=== PATIENT | female | born 1985 | race Caucasian/White ===

== ENCOUNTER 2017-12-19 18:00 | Inpatient (IN) | payer OTHER ==
[~2017-12-19] VITALS: Ht 165.1 cm; Wt 113.4 kg
[2017-12-19] MEDS ORDERED: MORPHINE SULFATE 2 MG/ML SYR IV STA (18:53)
[2017-12-19] MEDS ORDERED: ONDANSETRON HCL INJ 2 MG/ML VIAL IV STA (18:53)
[2017-12-19] MEDS ORDERED: SODIUM CHLORIDE 0.9% 1000ML 1,000 ML IV SCH (19:00)
[2017-12-19 19:17] LABS: BASOPHILS # (AUTO) 0.1 (0.0-0.1); BASOPHILS % 0.5 % (0.0-1.0); EOSINOPHILS # (AUTO) 0.2 (0.0-0.4); EOSINOPHILS % 1.5 % (0.0-6.0); HEMATOCRIT 42.5 % (34.2-44.1); HEMOGLOBIN 13.9 g/dL (12.0-16.0); LYMPHOCYTES # (AUTO) 2.3 (1.0-3.2); LYMPHOCYTES % 14.2 % (18.0-39.1); MEAN CORPUSCULAR HEMOGLOBIN 29.8 pg (28-32); MEAN CORPUSCULAR HGB CONC 32.7 g/dL (31-35); MONOCYTES # (AUTO) 0.6 (0.2-0.8); MONOCYTES % 3.7 % (4.4-11.3); NEUTROPHILS # (AUTO) 12.6 (2.1-6.9); NEUTROPHILS % 79.7 % (38.7-80.0); PLATELET COUNT 420 x10e3/uL (140-360); RED BLOOD COUNT 4.67 x10e6/uL (3.6-5.1); RED CELL DISTRIBUTION WIDTH 13.4 % (11.7-14.4)
[2017-12-19 19:30] LABS: INR 0.93; PARTIAL THROMBOPLASTIN TIME 25.1 seconds (23.8-35.5); PROTHROMBIN TIME 13.3 seconds (11.9-14.5)
--- NOTE | 2017-12-19 19:37 | Diagnostic Imaging Report ---
Examination: Single AP view of the chest. COMPARISON: None. INDICATION: Bronchitis DISCUSSION: Lines/tubes: None. Lungs: Pulmonary venous congestion. No consolidative pneumonia. Pleura: There is no pleural effusion or pneumothorax. Heart and mediastinum: The heart and the mediastinum are unremarkable. Bones and soft tissues: No acute bony abnormalities. IMPRESSION: No consolidative pneumonia Pulmonary venous congestion Signed by: Dr. Deven Lundberg M.D. on 12/19/2017 7:33 PM
[2017-12-19 19:39] LABS: ALANINE AMINOTRANSFERASE 32 IU/L (0-55); ALBUMIN 3.6 g/dL (3.5-5.0); ALBUMIN/GLOBULIN RATIO 0.9 (0.8-2.0); ALKALINE PHOSPHATASE 55 IU/L (40-150); ANION GAP 20.4 mmol/L (8-16); BLOOD UREA NITROGEN 13 mg/dL (7-26); BUN/CREATININE RATIO 15 (6-25); CALCIUM 9.5 mg/dL (8.4-10.2); CARBON DIOXIDE 17 mmol/L (22-29); CHLORIDE 103 mmol/L (98-107); CREATININE, SERUM 0.85 mg/dL (0.57-1.11); EST GLOMERULAR FILTRATION RATE > 60 ML/MIN (60-); GLUCOSE 128 mg/dL (74-118); MAGNESIUM 1.8 MG/DL (1.3-2.1); POTASSIUM 3.4 mmol/L (3.5-5.1); SODIUM 137 mmol/L (136-145)
[2017-12-19 20:26] LABS: CREATINE KINASE MB 1.7 ng/mL (0-5.0)
--- NOTE | 2017-12-19 20:54 | Diagnostic Imaging Report ---
EXAMINATION: CT scan of the chest with contrast. TECHNIQUE: Helical CT images of the chest were performed from the lung apices to the level of the adrenal glands after the intravenous administration of 100 cc of Isovue 300. Coronal and sagittal reformatted images were obtained.Dose modulation, iterative reconstruction, and/or weight based adjustment of the mA/kV was utilized to reduce the radiation dose to as low as reasonably achievable. COMPARISON: None. CLINICAL HISTORY:chest pain DISCUSSION: LINES/TUBES: None. LUNGS AND AIRWAYS: No pulmonary embolism. Multifocal groundglass opacities patchy in the upper lobes and confluence in the lower lobes. Interlobular septal thickening. PLEURA: Small pleural effusions. HEART AND MEDIASTINUM: The thyroid gland is normal. The heart and pericardium are within normal limits. LYMPH NODES: There is no mediastinal, hilar or axillary lymphadenopathy. ABDOMEN: Limited contrast-enhanced views of the upper abdomen show no abnormality within the visualized liver, spleen, pancreas, or kidneys. The adrenal glands are normal. BONES AND SOFT TISSUES: No acute bony abnormalities. IMPRESSION: No pulmonary embolism. Multifocal lower lobe predominant groundglass consolidations and interlobular septal thickening likely secondary to pulmonary edema. (Other less likely etiology include alveolar proteinosis, hemorrhage, or acute eosinophilic pneumonia). Small pleural effusions. Signed by: Dr. Deven Lundberg M.D. on 12/19/2017 8:51 PM
[2017-12-19] MEDS ORDERED: ACETAMINOPHEN 325 MG TAB PO PRN (21:45)
[2017-12-19] MEDS ORDERED: SODIUM CHLORIDE FLUSH 10 ML SYR INJ PRN (21:45)
[2017-12-19] MEDS ORDERED: ONDANSETRON HCL INJ 2 MG/ML VIAL IV PRN (21:45)
[2017-12-19] MEDS ORDERED: SODIUM CHLORIDE 0.9% 50ML 50 ML ONE (22:11)
[2017-12-19] MEDS ORDERED: IOPAMIDOL 370 MG/ML 200 ML INFUS..BTL INJ ONE (22:11)
[2017-12-19] MEDS: CEFTRIAXONE SOD 1 GM VIAL IV SCH (22:15)
[2017-12-19] MEDS: AZITHROMYCIN 500MG/NS 250 ML 250 ML IV SCH (22:15)
[2017-12-20] MEDS ORDERED: FEMYNOR PO (02:34)
[2017-12-20] MEDS ORDERED: SINGULAIR10 MG PO (02:34)
[2017-12-20 02:54] LABS: CREATINE KINASE MB 22.6 ng/mL (0-5.0)
[2017-12-20] MEDS ORDERED: METOPROLOL TARTRATE 25 MG TAB PO ONE (03:00)
[2017-12-20] MEDS ORDERED: ASPIRIN 81 MG CHEW TAB PO ONE (03:00)
[2017-12-20] MEDS ORDERED: MORPHINE SULFATE 2 MG/ML SYR IV STA (04:03)
[2017-12-20] MEDS ORDERED: ONDANSETRON HCL INJ 2 MG/ML VIAL IV STA (04:03)
[2017-12-20] MEDS ORDERED: ONDANSETRON HCL INJ 2 MG/ML VIAL ONE (04:07)
[2017-12-20] MEDS ORDERED: MORPHINE SULFATE 2 MG/ML SYR ONE (04:07)
[2017-12-20 05:21] LABS: BASOPHILS # (AUTO) 0.1 (0.0-0.1); BASOPHILS % 0.4 % (0.0-1.0); EOSINOPHILS # (AUTO) 0.3 (0.0-0.4); EOSINOPHILS % 2.7 % (0.0-6.0); HEMATOCRIT 36.5 % (34.2-44.1); HEMOGLOBIN 11.8 g/dL (12.0-16.0); LYMPHOCYTES # (AUTO) 3.5 (1.0-3.2); LYMPHOCYTES % 29.7 % (18.0-39.1); MEAN CORPUSCULAR HEMOGLOBIN 29.7 pg (28-32); MEAN CORPUSCULAR HGB CONC 32.3 g/dL (31-35); MEAN CORPUSCULAR VOLUME 91.9 fL (81-99); MONOCYTES # (AUTO) 0.5 (0.2-0.8); MONOCYTES % 4.6 % (4.4-11.3); NEUTROPHILS # (AUTO) 7.2 (2.1-6.9); NEUTROPHILS % 62.2 % (38.7-80.0); PLATELET COUNT 317 x10e3/uL (140-360); RED BLOOD COUNT 3.97 x10e6/uL (3.6-5.1); RED CELL DISTRIBUTION WIDTH 13.4 % (11.7-14.4)
[2017-12-20 05:32] LABS: ALANINE AMINOTRANSFERASE 33 IU/L (0-55); ALBUMIN/GLOBULIN RATIO 0.9 (0.8-2.0); ALKALINE PHOSPHATASE 44 IU/L (40-150); ANION GAP 14.8 mmol/L (8-16); BLOOD UREA NITROGEN 13 mg/dL (7-26); BUN/CREATININE RATIO 18 (6-25); CALCIUM 8.4 mg/dL (8.4-10.2); CARBON DIOXIDE 17 mmol/L (22-29); CHLORIDE 108 mmol/L (98-107); CREATININE, SERUM 0.71 mg/dL (0.57-1.11); EST GLOMERULAR FILTRATION RATE > 60 ML/MIN (60-); GLUCOSE 111 mg/dL (74-118); POTASSIUM 3.8 mmol/L (3.5-5.1); SODIUM 136 mmol/L (136-145)
[2017-12-20] MEDS ORDERED: MORPHINE SULFATE 2 MG/ML SYR IV PRN (07:00)
[2017-12-20] MEDS: METOPROLOL TARTRATE 25 MG TAB PO SCH ×2 (09:00→17:41)
[2017-12-20] MEDS ORDERED: ASPIRIN 81 MG ENTERIC COATED PO STA (10:23)
[2017-12-20 10:26] LABS: CREATINE KINASE MB 22.7 ng/mL (0-5.0)
[2017-12-20] MEDS ORDERED: HEPARIN SOD (PORCINE) 5,000 UNIT/ML VIAL IV ONE (10:30)
[2017-12-20 10:58] LABS: CHOL/HDL RATIO 2.5 (3.0-3.6)
--- NOTE | 2017-12-20 11:02 | Consultation ---
DATE OF CONSULTATION: December 20, 2017 CARDIOLOGY CONSULTATION REQUESTING PHYSICIAN: Dr. Madi Hernandez REASON FOR CONSULTATION: Chest pain. HISTORY OF PRESENT ILLNESS: This is a 32-year-old woman with history of pre-diabetes mellitus who presents with complaints of chest pain and shortness of breath. The patient indicates that she has had dyspnea on exertion, orthopnea and PND for the last 2 weeks. On Saturday, she saw her primary care doctor and was diagnosed with bronchitis. She was started on antibiotics without improvement in her symptoms. She saw her primary physician on Saturday again, and her antibiotics were changed. Yesterday, she noted her pulse ox reading was low, and she appeared pale, cold and clammy. She was, therefore, brought to the ER for further evaluation. Yesterday, the patient also developed burning, sharp chest pain yesterday that was worse with deep inspiration. She also complains of cough, subjective fever and chills. REVIEW OF SYSTEMS: Negative, except as per HPI. PAST MEDICAL HISTORY: Pre-diabetes mellitus. PAST SURGICAL HISTORY: section. ALLERGIES: NO KNOWN DRUG ALLERGIES. MEDICATIONS: Please see EMR. SOCIAL HISTORY: Denies tobacco, alcohol, or illicit drugs. FAMILY HISTORY: Denies family history of heart disease. PHYSICAL EXAMINATION VITAL SIGNS: Temperature 98.7 degrees, pulse 73, respiratory rate 17, blood pressure 116/83, oxygen saturation 98% on BiPAP. GENERAL: Obese woman in no acute distress, well developed, well nourished. HEENT: Normocephalic and atraumatic. Pupils are equal. No scleral icterus. NECK: Supple. No thyromegaly or cervical lymphadenopathy. No carotid bruit. LUNGS: Clear to auscultation bilaterally. No wheezes or crackles. CARDIOVASCULAR: Normal rate, regular rhythm. No murmur. Normal S1 and S2. ABDOMEN: Soft. Nontender. EXTREMITIES: No edema. NEURO: Nonfocal exam. LABS: WBC 11.64, hemoglobin 11.8, hematocrit 36.5, platelets 317. Sodium 136, potassium 3.8, chloride 108, CO2 17, BUN 13, creatinine 0.71. CK 271, CK-MB 22.6, troponin I 3.493. CT CHEST: No pulmonary embolism. Multifocal lower lobe predominant ground-glass consolidations and interlobular septal thickening likely secondary to pulmonary edema. Other less likely etiologies include alveolar proteinosis, hemorrhage, acute eosinophilic pneumonia, small pleural effusion. EKG: Sinus tachycardia, possible left atrial enlargement, left bundle-branch block. IMPRESSION 1. Pneumonia. 2. Acute hypoxic respiratory failure requiring noninvasive positive-pressure ventilation. 3. [id number] myocardial infarction. RECOMMENDATIONS: Start heparin drip and aspirin. Check lipid panel. Trend cardiac enzymes. Echocardiogram has been done. We will review the images. The patient will need ischemic evaluation. Antibiotics per primary service. Thank you for this consult. We will continue to follow. Job#: [id number]
[2017-12-20] MEDS: HEPARIN 25,000U/0.45% NS 250ML 1,000 UNIT in SODIUM CHLORIDE 0.9% 250ML 0 ML IV SCH ×2 (11:21→18:39)
[2017-12-20 13:13] LABS: BASOPHILS % 0.3 % (0.0-1.0); EOSINOPHILS # (AUTO) 0.5 (0.0-0.4); HEMATOCRIT 38.2 % (34.2-44.1); HEMOGLOBIN 12.5 g/dL (12.0-16.0); LYMPHOCYTES # (AUTO) 2.8 (1.0-3.2); LYMPHOCYTES % 30.4 % (18.0-39.1); MEAN CORPUSCULAR HGB CONC 32.7 g/dL (31-35); MEAN CORPUSCULAR VOLUME 91.6 fL (81-99); MONOCYTES # (AUTO) 0.3 (0.2-0.8); MONOCYTES % 3.4 % (4.4-11.3); NEUTROPHILS # (AUTO) 5.6 (2.1-6.9); NEUTROPHILS % 60.6 % (38.7-80.0); PLATELET COUNT 341 x10e3/uL (140-360); RED BLOOD COUNT 4.17 x10e6/uL (3.6-5.1); RED CELL DISTRIBUTION WIDTH 13.5 % (11.7-14.4)
[2017-12-20 13:25] LABS: INR 0.94; PROTHROMBIN TIME 13.4 seconds (11.9-14.5)
[2017-12-20 13:26] LABS: PARTIAL THROMBOPLASTIN TIME 34.4 seconds (23.8-35.5)
[2017-12-20] MEDS: FUROSEMIDE INJ 10 MG/ML 4 ML VIAL IV SCH ×2 (14:21→20:08)
[2017-12-20] MEDS ORDERED: MORPHINE SULFATE INJ 4 MG/ML INJ IV PRN (16:15)
[2017-12-20 17:02] VITALS: BP 137/98
[2017-12-20 17:07] VITALS: BP 137/98
[2017-12-20 20:00] VITALS: BP 123/88
[2017-12-20] MEDS: AZITHROMYCIN 500MG/NS 250 ML 250 ML IV SCH (20:08)
[2017-12-20] MEDS: CEFTRIAXONE SOD 1 GM VIAL IV SCH (20:08)
[2017-12-20 21:00] VITALS: BP 123/88
[2017-12-21 04:00] VITALS: BP 125/82
[2017-12-21 05:17] LABS: BASOPHILS # (AUTO) 0.1 (0.0-0.1); BASOPHILS % 0.6 % (0.0-1.0); EOSINOPHILS # (AUTO) 0.6 (0.0-0.4); EOSINOPHILS % 5.9 % (0.0-6.0); HEMATOCRIT 35.7 % (34.2-44.1); HEMOGLOBIN 11.4 g/dL (12.0-16.0); LYMPHOCYTES # (AUTO) 3.2 (1.0-3.2); LYMPHOCYTES % 29.4 % (18.0-39.1); MEAN CORPUSCULAR HEMOGLOBIN 29.2 pg (28-32); MEAN CORPUSCULAR HGB CONC 31.9 g/dL (31-35); MEAN CORPUSCULAR VOLUME 91.3 fL (81-99); MONOCYTES # (AUTO) 0.6 (0.2-0.8); MONOCYTES % 5.4 % (4.4-11.3); NEUTROPHILS # (AUTO) 6.3 (2.1-6.9); NEUTROPHILS % 58.4 % (38.7-80.0); PLATELET COUNT 293 x10e3/uL (140-360); RED BLOOD COUNT 3.91 x10e6/uL (3.6-5.1); RED CELL DISTRIBUTION WIDTH 13.3 % (11.7-14.4)
[2017-12-21 07:49] VITALS: BP 127/90
[2017-12-21] MEDS: ASPIRIN 81 MG ENTERIC COATED PO SCH (08:48)
[2017-12-21] MEDS: FUROSEMIDE INJ 10 MG/ML 4 ML VIAL IV SCH ×2 (08:48→20:49)
[2017-12-21] MEDS: METOPROLOL TARTRATE 25 MG TAB PO SCH ×2 (08:48→16:31)
[2017-12-21] MEDS: HEPARIN 25,000U/0.45% NS 250ML 1,000 UNIT in SODIUM CHLORIDE 0.9% 250ML 0 ML IV SCH (08:49)
[2017-12-21 10:37] VITALS: BP 127/90
[2017-12-21] MEDS ORDERED: NITROGLYCERIN 0.4 MG SUBL SL PRN (10:45)
[2017-12-21 11:55] VITALS: BP 122/79
--- NOTE | 2017-12-21 13:43 | Progress Note ---
DATE: December 21, 2017 CARDIOLOGY PROGRESS NOTE SUBJECTIVE: The patient had episode of sharp left-sided chest pain earlier today. This has now completely resolved. OBJECTIVE VITAL SIGNS: Temperature 97.8 degrees, pulse 95, respiratory rate 18, blood pressure 122/79, oxygen saturation 96% on 4 liters nasal cannula. GENERAL: Obese woman, in no acute distress, awake and alert. LUNGS: Clear to auscultation bilaterally. No wheezes or crackles. Decreased breast sounds in the bases. CARDIOVASCULAR: Normal rate, regular rhythm. No murmur. Normal S1 and S2. ABDOMEN: Soft, nontender. EXTREMITIES: No edema. CARDIAC MEDICATIONS 1. Heparin drip. 2. Lasix 40 mg IV q.12 hours. 3. Aspirin 81 mg p.o. daily. 4. Metoprolol tartrate 25 mg p.o. b.i.d. LABS: WBC 10.79, hemoglobin 11.4, hematocrit 35.7, and platelets 293. Troponin is 1.934. TELEMETRY: Normal sinus rhythm. IMPRESSION 1. [id number]-[id number] myocardial infarction. 2. Acute systolic heart failure, ejection fraction 45% to 50%. 3. Pneumonia. 4. Acute hypoxic respiratory failure, requiring noninvasive positive pressure ventilation. RECOMMENDATIONS: Continue current cardiac medications. Patient has had good diuresis on current Lasix regimen. We will continue plan for cardiac catheterization on Saturday. Thank you for this consult. We will continue to follow. Job#: [id number] ALIRIO
[2017-12-21 15:17] LABS: ANION GAP 16.7 mmol/L (8-16); BLOOD UREA NITROGEN 18 mg/dL (7-26); BUN/CREATININE RATIO 24 (6-25); CALCIUM 9.1 mg/dL (8.4-10.2); CARBON DIOXIDE 24 mmol/L (22-29); CHLORIDE 100 mmol/L (98-107); CREATININE, SERUM 0.74 mg/dL (0.57-1.11); EST GLOMERULAR FILTRATION RATE > 60 ML/MIN (60-); GLUCOSE 93 mg/dL (74-118); POTASSIUM 3.7 mmol/L (3.5-5.1); SODIUM 137 mmol/L (136-145)
[2017-12-21 16:30] VITALS: BP 128/89
[2017-12-21 20:00] VITALS: BP 140/103
[2017-12-21] MEDS: CEFTRIAXONE SOD 1 GM VIAL IV SCH (20:49)
[2017-12-21] MEDS: AZITHROMYCIN 500MG/NS 250 ML 250 ML IV SCH (20:49)
[2017-12-22 02:29] VITALS: BP 101/57
[2017-12-22 04:00] VITALS: BP 106/58
[2017-12-22 05:13] LABS: BASOPHILS # (AUTO) 0.1 (0.0-0.1); BASOPHILS % 0.5 % (0.0-1.0); EOSINOPHILS # (AUTO) 0.4 (0.0-0.4); EOSINOPHILS % 3.9 % (0.0-6.0); HEMATOCRIT 36.1 % (34.2-44.1); LYMPHOCYTES # (AUTO) 3.5 (1.0-3.2); LYMPHOCYTES % 32.5 % (18.0-39.1); MEAN CORPUSCULAR HGB CONC 33.2 g/dL (31-35); MEAN CORPUSCULAR VOLUME 90.3 fL (81-99); MONOCYTES # (AUTO) 0.5 (0.2-0.8); MONOCYTES % 4.9 % (4.4-11.3); NEUTROPHILS # (AUTO) 6.2 (2.1-6.9); NEUTROPHILS % 57.8 % (38.7-80.0); PLATELET COUNT 274 x10e3/uL (140-360)
[2017-12-22 05:28] LABS: ANION GAP 17.1 mmol/L (8-16); BLOOD UREA NITROGEN 15 mg/dL (7-26); BUN/CREATININE RATIO 21 (6-25); CARBON DIOXIDE 24 mmol/L (22-29); CHLORIDE 101 mmol/L (98-107); EST GLOMERULAR FILTRATION RATE > 60 ML/MIN (60-); GLUCOSE 102 mg/dL (74-118); POTASSIUM 3.1 mmol/L (3.5-5.1); SODIUM 139 mmol/L (136-145)
[2017-12-22 08:00] VITALS: BP 111/72
[2017-12-22] MEDS: FUROSEMIDE INJ 10 MG/ML 4 ML VIAL IV SCH ×3 (08:44→23:10)
[2017-12-22] MEDS: ASPIRIN 81 MG ENTERIC COATED PO SCH (08:44)
[2017-12-22] MEDS: METOPROLOL TARTRATE 25 MG TAB PO SCH ×2 (08:44→16:15)
[2017-12-22 12:00] VITALS: BP 117/82
[2017-12-22] MEDS ORDERED: POTASSIUM CHLORIDE 20 MEQ TAB CR PO ONE ×2 (12:00→13:30)
[2017-12-22] MEDS: HEPARIN 25,000U/0.45% NS 250ML 1,000 UNIT in SODIUM CHLORIDE 0.9% 250ML 0 ML IV SCH (13:30)
[2017-12-22 16:00] VITALS: BP 129/93
[2017-12-22 20:00] VITALS: BP 136/96
[2017-12-22] MEDS: AZITHROMYCIN 500MG/NS 250 ML 250 ML IV SCH (20:58)
[2017-12-22] MEDS: CEFTRIAXONE SOD 1 GM VIAL IV SCH (20:58)
--- NOTE | 2017-12-22 23:18 | Progress Note ---
DATE: December 22, 2017 CARDIOLOGY PROGRESS NOTE SUBJECTIVE: Patient reports she continues to have coughing when she lies down. In addition, she notes chest pressure and shortness of breath with ambulating to the bathroom. OBJECTIVE VITAL SIGNS: Temperature 98 degrees, pulse 86, respiratory rate 18, blood pressure 111/72, and oxygen saturation 99% on 4 L nasal cannula. GENERAL: Obese woman, in no acute distress, awake and alert. LUNGS: Clear to auscultation bilaterally. No wheezes or crackles other than decreased breath sounds in the bases. CARDIOVASCULAR: Normal rate, regular rhythm. No murmur. Normal S1 and S2. ABDOMEN: Soft, nontender. EXTREMITIES: No edema. CARDIAC MEDICATIONS 1. Furosemide 40 mg IV q.12 h. 2. Metoprolol tartrate 25 mg p.o. b.i.d. 3. Aspirin 81 mg p.o. daily. LABS: WBC 10.7, hemoglobin 12, hematocrit 36.1, and platelets 274,000. Sodium 139, potassium 3.1, chloride 101, CO2 of 24, BUN 15, and creatinine 70. TELEMETRY: Normal sinus rhythm. IMPRESSIONS 1. Non-ST elevation myocardial infarction. 2. Acute systolic heart failure, ejection fraction 45% to 50%. 3. Pneumonia. 4. Acute hypoxic respiratory failure, requiring noninvasive positive pressure ventilation. RECOMMENDATIONS: Increase diuretics. Repeat troponin. Keep patient on heparin drip. Plan for cardiac catheterization in the morning. Continue current cardiac medications. Otherwise, antibiotics per primary service. Thank you for this consult. We will continue to follow. Job#: [id number]
[2017-12-23] VITALS (9 sets, daily range): BP systolic 101–124; BP diastolic 57–81
[2017-12-23 05:05] LABS: BASOPHILS # (AUTO) 0.1 (0.0-0.1); BASOPHILS % 0.5 % (0.0-1.0); EOSINOPHILS # (AUTO) 0.2 (0.0-0.4); EOSINOPHILS % 2.1 % (0.0-6.0); HEMATOCRIT 36.1 % (34.2-44.1); HEMOGLOBIN 12.1 g/dL (12.0-16.0); LYMPHOCYTES # (AUTO) 3.5 (1.0-3.2); LYMPHOCYTES % 31.9 % (18.0-39.1); MEAN CORPUSCULAR HEMOGLOBIN 29.5 pg (28-32); MEAN CORPUSCULAR HGB CONC 33.5 g/dL (31-35); MONOCYTES # (AUTO) 0.5 (0.2-0.8); MONOCYTES % 4.7 % (4.4-11.3); NEUTROPHILS # (AUTO) 6.6 (2.1-6.9); NEUTROPHILS % 60.5 % (38.7-80.0); PLATELET COUNT 277 x10e3/uL (140-360)
[2017-12-23 05:29] LABS: ANION GAP 18.2 mmol/L (8-16); BLOOD UREA NITROGEN 13 mg/dL (7-26); BUN/CREATININE RATIO 17 (6-25); CALCIUM 9.3 mg/dL (8.4-10.2); CARBON DIOXIDE 24 mmol/L (22-29); CHLORIDE 100 mmol/L (98-107); CREATININE, SERUM 0.77 mg/dL (0.57-1.11); EST GLOMERULAR FILTRATION RATE > 60 ML/MIN (60-); GLUCOSE 100 mg/dL (74-118); POTASSIUM 3.2 mmol/L (3.5-5.1); SODIUM 139 mmol/L (136-145)
[2017-12-23] MEDS ORDERED: FENTANYL CITRATE/PF 100MCG/2 ML INJ ONE (07:22)
[2017-12-23] MEDS ORDERED: MIDAZOLAM HCL 2 MG/2 ML VIAL ONE ×2 (07:22→08:14)
[2017-12-23] MEDS ORDERED: LIDOCAINE HCL 1% LOCAL INJ 20 ML VIAL ONE (07:23)
[2017-12-23] MEDS ORDERED: IOPAMIDOL 370 MG/ML 200 ML INFUS..BTL INJ ONE (07:23)
[2017-12-23] MEDS ORDERED: SODIUM CHLORIDE 0.9% 1000ML 1,000 ML ONE (07:23)
[2017-12-23] MEDS ORDERED: HEPARIN SOD/SOD CHLORIDE 2,000 ML ONE (07:23)
[2017-12-23 07:33] LABS: INR 0.93; PROTHROMBIN TIME 13.3 seconds (11.9-14.5)
[2017-12-23] MEDS ORDERED: VERAPAMIL HCL 2.5 MG/ML 2 ML VIAL ONE (07:59)
[2017-12-23] MEDS ORDERED: HEPARIN SOD (PORCINE) 1000 UNIT/ML 30ML ONE (07:59)
[2017-12-23] MEDS ORDERED: NITROGLYCERIN/D5W 200 MCG/ML 250 ML ONE (07:59)
[2017-12-23] MEDS ORDERED: LISINOPRIL 10 MG TAB PO SCH (08:45)
[2017-12-23] MEDS: METOPROLOL TARTRATE 25 MG TAB PO SCH (09:00)
--- NOTE | 2017-12-23 09:20 | Operative Report ---
DATE OF PROCEDURE: December 23, 2017 INDICATIONS: Coronary artery disease and myocardial infarction. PROCEDURES PERFORMED 1. Left heart catheterization. 2. Selective coronary angiography. 3. Left ventriculography. 4. Deployment of right wrist transradial band. COMPLICATIONS: None. RECOMMENDATIONS: Medical therapy for nonischemic cardiomyopathy. Access obtained in the right radial artery. A 5-Georgian sheath was placed. Diagnostic coronary angiogram revealed no angiographic coronary artery disease in the left main, circumflex, left anterior descending, and right coronary arteries. LV ejection fraction is 30%. LV end-diastolic pressure of 21. No gradient across the aortic valve on pullback. Guide and sheath were removed. TR band applied. Patient was transferred to the room in stable condition. Job#: [id number] MICAH
--- NOTE | 2017-12-23 09:29 | Progress Note ---
DATE: December 23, 2017 CARDIOLOGY PROGRESS NOTE: Ms. Aleman feels better with less shortness of breath. PHYSICAL EXAMINATION VITALS: Afebrile, heart rate 88, blood pressure is 128/70. CARDIOVASCULAR: Regular rhythm. S3 gallop. LUNGS: Clear to auscultation bilaterally. ABDOMEN: Mildly distended. EXTREMITIES: Pedal pulses 2+. Coronary angiography demonstrated no evidence of coronary artery disease with an LV ejection fraction of 30%. ASSESSMENT: Acute systolic heart failure. PLAN: Aggressive medical therapy with Entresto, beta david, spironolactone. Patient can be discharged today with close followup in the office with Dr. Woods. I thank Dr. Hernandez for this consultation. Job#: [id number] MICAH
[2017-12-23] MEDS ORDERED: SODIUM CHLORIDE 0.9% 250ML 250 ML ONE (09:31)
[2017-12-23] MEDS: ASPIRIN 81 MG ENTERIC COATED PO SCH (09:50)
[2017-12-23] MEDS: FUROSEMIDE INJ 10 MG/ML 4 ML VIAL IV SCH (09:50)
[2017-12-23] MEDS ORDERED: SODIUM CHLORIDE 0.9% 1000ML 1,000 ML IV ONE (10:45)
--- NOTE | 2017-12-23 11:36 | Diagnostic Imaging Report ---
EXAMINATION: PA and lateral views of the chest. COMPARISON: CT chest with contrast 12/19/2017 CLINICAL HISTORY: Pneumonia DISCUSSION: The lungs are well-inflated. Patchy groundglass opacities throughout the lungs, though with a lower lung predominance persist and are seen to better advantage on comparison CT. No new consolidation or effusion. Stable cardiomediastinal contour. No acute osseous abnormality. IMPRESSION: Patchy multifocal opacities felt to represent pulmonary edema are seen to better advantage on comparison CT 12/19/2017. No new consolidations. Signed by: Dr. Sean Cates M.D. on 12/23/2017 11:32 AM
[2017-12-23] MEDS ORDERED: ALDACTONE25 MG ×2 (15:07→15:25)
[2017-12-23] MEDS ORDERED: ASPIRIN81 MG PO (15:07)
[2017-12-23] MEDS ORDERED: LOPRESSOR25 MG PO (15:07)
[2017-12-23] MEDS ORDERED: LIPITOR20 MG PO (15:07)
[2017-12-23] MEDS ORDERED: e (15:08)
--- OUTSIDE RECORDS SUMMARY | 2017-12-24 13:14 | XMS REPORT ---
Author [facility] Address Unknown Phone Unavailable Care Team Providers Care Hemotherapist Name Role Phone DANILO CHANG Unavailable Unavailable Problems This patient has no known problems. Allergies, Adverse Reactions, Alerts This patient has no known allergies or adverse reactions. Medications This patient has no known medications. Results Test Description Test Time Test Comments Text Results Atomic Results Result Comments CHEST 2 VIEWS 2017-12-23 11:30:00 [place] [address] Patient Name: JO MENESES MR #: [id number] : 1985 Age/Sex: 32/F Req #: [id number] Adm Physician: DANILO CHANG MD Ordered by: DANILO CHANG MD Report #: [id number] Location: [facility] Room/Bed: [place] [address] Procedure: [id number] DX/CHEST 2 VIEWS Exam Date: 12/23/17 Exam Time: 0630 REPORT STATUS: Signed EXAMINATION: PA and lateral views of the chest. COMPARISON: CT chest with contrast 12/19/2017 CLINICAL HISTORY: Pneumonia DISCUSSION: The lungs are well-inflated. Patchy groundglass opacities throughout the lungs, though with a lower lung predominance persist and are seen to better advantage on comparison CT. No new consolidation or effusion. Stable cardiomediastinal contour. No acute osseous abnormality. IMPRESSION: Patchy multifocal opacities felt to represent pulmonary edema are seen to better advantage on comparison CT 12/19/2017. No new consolidations. Signed by: Dr. Kelly Santo M.D. on 12/23/2017 11:32 AM Dictated By: KELLY SANTO MD 31 Transcribed By: LIANA on 12/23/171131 COPY TO: DANILO CHANG MD CT CHEST W 2017-12-19 20:33:00 [place] [address] Patient Name: JO MENESES MR #: [id number] : 1985 Age/Sex: 32/F Req #: [id number] Adm Physician: Ordered by: EDE LAWSON HARVESTER OPERATOR Report #: [id number] Location: ER Room/Bed: Procedure: [id number] CT/CT CHEST W Exam Date: Exam Time: REPORT STATUS: Signed EXAMINATION: CT scan of the chest with contrast. TECHNIQUE: Helical CT images of the chest were performed from the lung apices to the level of the adrenal glands after the intravenous administration of 100 cc of Isovue 300. Coronal and sagittal reformatted images were obtained.Dose modulation, iterative reconstruction, and/or weight based adjustment of the mA/kV was utilized to reduce the radiation dose to as low as reasonably achievable. COMPARISON: None. CLINICAL HISTORY:chest pain DISCUSSION: LINES/TUBES: None. LUNGS AND AIRWAYS: No pulmonary embolism. Multifocal groundglass opacities patchy in the upper lobes and confluence in the lower lobes. Interlobular septal thickening. PLEURA: Small pleural effusions. HEART AND MEDIASTINUM: The thyroid gland is normal. The heart and pericardium are within normal limits. LYMPH NODES: There is no mediastinal, hilar or axillary lymphadenopathy. ABDOMEN: Limited contrast- enhanced views of the upper abdomen show no abnormality within the visualized liver, spleen, pancreas, or kidneys. The adrenal glands are normal. BONES AND SOFT TISSUES: No acute bony abnormalities. IMPRESSION: No pulmonary embolism. Multifocal lower lobe predominant groundglass consolidations and interlobular septal thickening likely secondary to pulmonary edema. (Other less likely etiology include alveolar proteinosis, he morrhage, or acute eosinophilic pneumonia). Small pleural effusions. Signed by: Dr. Conner Marx M.D. on 12/19/2017 8:51 PM Dictated By: CONNER MARX MD 50 Transcribed By: LIANA on 12/19/172050 COPY TO: EDE LAWSON NP CHEST SINGLE (PORTABLE) 2017-12-19 19:32:00 [place] [address] Patient Name: JO MENESES MR #: [id number] : 1985 Age/Sex: 32/F Req #: [id number] Adm Physician: Ordered by: EDE LAWSON NP Report #: [id number] Location: ER Room/Bed: Procedure: [id number] DX/CHEST SINGLE (PORTABLE) Exam Date: 12/19/17 Exam Time: 1904 REPORT STATUS: Signed Examination: Single AP view of the chest. COMPARISON: None. INDICATION: Bronchitis DISCUSSION: Lines/tubes: None. Lungs: Pulmonary venous congestion. No consolidative pneumonia. Pleura: There is no pleural effusion or pneumothorax. Heart and mediastinum: The heart and the mediastinum are unremarkable. Bones and soft tissues: No acute bony abnormalities. IMPRESSION: No consolidative pneumonia Pulmonary venous congestion Signed by: Dr. Conner Marx M.D. on 12/19/2017 7:33 PM Dictated By: CONNER MARX MD 32 Transcribed By: LIANA on 12/19/171932 COPY TO: EDE LAWSON NP
--- NOTE | 2018-02-12 01:20 | Discharge Summary ---
CHIEF COMPLAINT: Chest pain, left bundle branch block, multifocal pneumonia. FINAL DIAGNOSES: Acute congestive heart failure due to cardiomyopathy. PROCEDURES: Cardiac cath. No intervention required. DISPOSITION: Home. A 32-year-old female no known past medical history, takes no medications, brought to the ER with a several-day history of progressively frequent cough associated with chest congestion, mild shortness of breath. Symptoms get worse with exertion. The day of admission patient developed left-sided chest pain radiating to the left arm. Was seen by her PCP a few days prior to admission. Diagnosed with bronchitis. Was given p.o. antibiotics and patient has had no improvement. In the emergency room, her chest was revealing inspiratory crackles. Further studies and monitoring was carried out and the patient admitted to facility for evaluation regarding left-sided chest pain, multifocal pneumonia on x-ray, respiratory distress. Initial cardiac enzymes, 1st set was showing some elevation, admission was made. Will be undergoing daley cultures. Request a cardiology follow. Will be placing on O2 supplement, nasal cannula. Will begin nebulizer treatments as well. Patient was admitted to [facility] on a cardiac diet. Vital signs are stable. She has been started on azithromycin 250 mg IV q.24. She was also placed on ceftriaxone 1 g IV q.24. Aspirin 81 mg daily. Morphine for pain control and for chest pain care, she was given nitroglycerin 0.4 mg sublingual q.5 minutes x3. Laboratory studies showing stable electrolytes. Kidney functions were stable. Glucose 111. CBC stable. Undergoing cardiology review. Patient was put on the catheterization board. Continued to be treated for atypical pneumonia. Further potassium was noted to have trended down to 3.1. Her other labs were continued to be stable. Nebulizer treatments were continuing. Tolerating her antibiotics well. Catheterization was conducted uneventfully. No coronary artery disease was noted. Patient was released home shortly after the catheterization in stable condition. EKGs are showing sinus tachycardia, possible left atrial enlargement, left bundle branch block. Further EKGs are showing normal sinus rhythm with left bundle branch block. Echocardiogram was showing ejection fraction between 45% and 50%. No evidence of pericardial effusion. Catheterization was carried out by Dr. Mcdonald and he noted there was no angiographic coronary artery disease, but the patient has nonischemic congestive heart failure. Will be treating medically. Returned to recovery room in good condition. Once stabilized from the procedure, the patient was able be discharged home in stable condition. With discharge, patient will continue on a cardiac diet. No equipment or supplies were necessary, drains or Lemus as needed. Activity level as directed by me, as well as by Dr. Mcdonald. She will be reporting back to Dr. Woods's office on December 27. Will be picking up samples. She will be returning to her PCP within 7-10 days. She will be taking 1. Aspirin 81 mg daily. 2. Lipitor 20 mg daily. 3. Femynor 0.25 per 35 one tablet daily. 4. Metoprolol tartrate 25 mg daily. 5. Singulair 10 mg at bedtime. 6. Aldactone 25 mg daily. She was instructed to stop taking her previous Aldactone prescription. Will be reporting back to emergency room if she has any further recurrence of symptoms. Dictated By: MASOUD Goodrich Job#: [id number] CQ
== END 2017-12-23 15:45 | disposition home or self-care (01) | DRG 280 ==
LOC: ER 18:00 → ERHOLD 21:33 → IMCU 12-20 16:42
PROC: 4A023N7 Measurement of Cardiac Sampling and Pressure, Left Heart, Percutaneous Approach (ICD-10-PCS; principal; 2017-12-23)
PROC: B2111ZZ Fluoroscopy of Multiple Coronary Arteries using Low Osmolar Contrast (ICD-10-PCS; 2017-12-23)
PROC: B2151ZZ Fluoroscopy of Left Heart using Low Osmolar Contrast (ICD-10-PCS; 2017-12-23)
DX: I21.4 Non-ST elevation (NSTEMI) myocardial infarction (principal); J96.01 Acute respiratory failure with hypoxia; I50.21 Acute systolic (congestive) heart failure; J69.0 Pneumonitis due to inhalation of food and vomit; I44.7 Left bundle-branch block, unspecified; I11.0 Hypertensive heart disease with heart failure; I25.5 Ischemic cardiomyopathy
CPT/HCPCS: 36415; 51700; 71045; 71046; 71260; 80048; 80053; 80061; 81025; 82550; 82553; 82948; 83605; 83735; 83880; 84484; 85025; 85610; 85730; 87040; 93005; 93306; 93458; 94660; 96361; 96365; 96366; 99284; J0456; J0696; J1644; J1940; J2001; J2250; J2270; J2405; J7030; J7050; Q9967

== ENCOUNTER → 2018-06-10 | Outpatient (CLI) | payer OTHER ==
[~2018-06-10] MED LIST: ALDACTONE25 MG; ASPIRIN81 MG PO; FEMYNOR PO; LIPITOR20 MG PO; LOPRESSOR25 MG PO; SINGULAIR10 MG PO; e
--- NOTE | 2018-06-10 10:32 | Diagnostic Imaging Report ---
EXAMINATION: PA and lateral views of the chest. COMPARISON: 12/23/2017 CLINICAL HISTORY: Shortness of breath, pacemaker DISCUSSION: Interval placement of a left subclavian approach implantable cardiac device. The body projects over the left midlung. Leads project over the right atrium, right ventricle, and coronary sinus. Lungs are well-inflated and without consolidation, pleural effusion, or pneumothorax. Normal heart size without overt pulmonary edema. No acute osseous abnormality. IMPRESSION: No acute cardiopulmonary abnormalities. Signed by: Dr. Sean Cates M.D. on 06/10/2018 10:29 AM
== END ==
LOC: RAD 09:40
PROVIDERS: ATTEND Internal Medicine
DX: R06.02 Shortness of breath (principal)
CPT/HCPCS: 71046

== ENCOUNTER 2018-06-19 23:14 | Observation (INO) | payer OTHER ==
[~2018-06-19] VITALS: Ht 165.1 cm; Wt 116.1 kg
--- OUTSIDE RECORDS SUMMARY | 2018-06-19 23:17 | XMS REPORT | Continuity of Care Document ---
Author Author [facility] Interface Address Unknown Phone Unavailable Problems Problem Status Onset Date Classification Date Reported Comments Source Chest pain Active Problem 12/23/2017 [facility] LBBB Active Problem 12/23/2017 [facility] Multifocal pneumonia Active Problem 12/23/2017 [facility] Medications Medication Details Route Status Patient Instructions Ordering Provider Order Date Source Spironolactone (Aldactone) 25 Mg Tablet, Active 12/23/2017 [facility] Aspirin 81 Mg Tab.chew Daily [facility] Atorvastatin Calcium (Lipitor) 20 Mg Tablet Daily Active [facility] E Active [facility] Femynor 0.25-[address] [facility] Metoprolol Tartrate (Lopressor) 25 Mg Tab Daily Active [facility] Montelukast Sodium (Singulair) 10 Mg Tablet Bedtime Active [facility] Spironolactone (Aldactone) 25 Mg Tablet Daily [facility] Allergies, Adverse Reactions, Alerts Substance Category Reaction Severity Reaction type Status Date Reported Comments Source Immunizations Immunization Date Given Site Status Last Updated Comments Source Results Order Name Results Value Reference Range Date Interpretation Comments Source Activated partial thromboplastin time (aPTT) in platelet poor plasma bycoagulation assay Activated partial thromboplastin time (aPTT) in platelet poor plasma bycoagulation assay 62.0 23.8 - 35.5 12/23/2017 [facility] INR in Platelet poor plasma by Coagulation assay INR in Platelet poor plasma by Coagulation assay 0.93 12/23/2017 [facility] Prothrombin time (PT) in platelet poor plasma by coagulation assay Prothrombin time (PT) in platelet poor plasma by coagulation assay 13.3 11.9 - 14.5 12/23/2017 [facility] Automated blood basophil count (count/volume) Automated blood basophil count (count/volume) 0.1 0.0 - 0.1 12/23/2017 [facility] Automated blood basophil count as percentage of total leukocytes Automated blood basophil count as percentage of total leukocytes 0.5 0.0 - 1.0 12/23/2017 [facility] Automated blood eosinophil count Automated blood eosinophil count 0.2 0.0 - 0.4 12/23/2017 [facility] Automated blood eosinophil count as percentage of total leukocytes Automated blood eosinophil count as percentage of total leukocytes 2.1 0.0 - 6.0 12/23/2017 [facility] Automated blood hematocrit (volume fraction) Automated blood hematocrit (volume fraction) 36.1 34.2 - 44.1 12/23/2017 [facility] Automated blood lymphocyte count as percentage ot total leukocytes Automated blood lymphocyte count as percentage ot total leukocytes 31.9 18.0 - 39.1 12/23/2017 [facility] Automated blood monocyte count as percentage of total leukocytes Automated blood monocyte count as percentage of total leukocytes 4.7 4.4 - 11.3 12/23/2017 [facility] Automated blood neutrophil count Automated blood neutrophil count 6.6 2.1 - 6.9 12/23/2017 [facility] Automated blood platelet count (count/volume) Automated blood platelet count (count/volume) 277 140 - 360 12/23/2017 [facility] Automated blood segmented neutrophil count as percentage of total leukocytes Automated blood segmented neutrophil count as percentage of total leukocytes 60.5 38.7 - 80.0 12/23/2017 [facility] Automated erythrocyte mean corpuscular hemoglobin (mass per erythrocyte) Automated erythrocyte mean corpuscular hemoglobin (mass per erythrocyte) 29.5 28 - 32 12/23/2017 [facility] Automated erythrocyte mean corpuscular hemoglobin concentration measurement (mass/volume) Automated erythrocyte mean corpuscular hemoglobin concentration measurement (mass/volume) 33.5 31 - 35 12/23/2017 [facility] Automated erythrocyte mean corpuscular volume Automated erythrocyte mean corpuscular volume 88.0 81 - 99 12/23/2017 [facility] Blood erythrocytes automated count (number/volume) Blood erythrocytes automated count (number/volume) 4.10 3.6 - 5.1 12/23/2017 [facility] Blood hemoglobin measurement (moles/volume) Blood hemoglobin measurement (moles/volume) 12.1 12.0 - 16.0 12/23/2017 [facility] Blood leukocytes automated count (number/volume) Blood leukocytes automated count (number/volume) 10.84 4.8 - 10.8 12/23/2017 [facility] Blood lymphocytes count (number/volume) Blood lymphocytes count (number/volume) 3.5 1.0 - 3.2 12/23/2017 [facility] Blood monocytes automated count (number/volume) Blood monocytes automated count (number/volume) 0.5 0.2 - 0.8 12/23/2017 [facility] Estimated glomerular filtration rate (GFR) determination Estimated glomerular filtration rate (GFR) determination null 60 12/23/2017 [facility] Glucose measurement Glucose measurement 100 74 - 118 12/23/2017 [facility] Serum or plasma anion gap Serum or plasma anion gap 18.2 8 - 16 12/23/2017 [facility] Serum or plasma calcium measurement (mass/volume) Serum or plasma calcium measurement (mass/volume) 9.3 8.4 - 10.2 12/23/2017 [facility] Serum or plasma carbon dioxide, total measurement (moles/volume) Serum or plasma carbon dioxide, total measurement (moles/volume) 24 22 - 29 12/23/2017 [facility] Serum or plasma chloride measurement (moles/volume) Serum or plasma chloride measurement (moles/volume) 100 98 - 107 12/23/2017 [facility] Serum or plasma creatinine measurement (mass/volume) Serum or plasma creatinine measurement (mass/volume) 0.77 0.57 - 1.11 12/23/2017 [facility] Serum or plasma potassium measurement (moles/volume) Serum or plasma potassium measurement (moles/volume) 3.2 3.5 - 5.1 12/23/2017 [facility] Serum or plasma sodium measurement (moles/volume) Serum or plasma sodium measurement (moles/volume) 139 136 - 145 12/23/2017 [facility] Serum or plasma urea nitrogen measurement (mass/volume) Serum or plasma urea nitrogen measurement (mass/volume) 13 7 - 26 12/23/2017 [facility] Serum or plasma urea nitrogen/creatinine mass ratio Serum or plasma urea nitrogen/creatinine mass ratio 17 6 - 25 12/23/2017 [facility] Troponin I measurement by highly sensitive enzyme immunoassay Troponin I measurement by highly sensitive enzyme immunoassay 1.024 0 - 0.300 12/23/2017 [facility] Red Cell Distribution Width 13.0 11.7 - 14.4 12/23/2017 [facility] IM GRANULOCYTES % 0.3 0.0 - 1.0 12/23/2017 [facility] Absolute Immature Granulocyte (auto 0.03 0 - 0.1 12/23/2017 [facility] Capillary blood glucose measurement by glucometer (mass/volume) Capillary blood glucose measurement by glucometer (mass/volume) 92 70 - 120 12/21/2017 [facility] Serum or plasma cholesterol in HDL measurement (mass/volume) Serum or plasma cholesterol in HDL measurement (mass/volume) 58 40 - 60 12/20/2017 [facility] Serum or plasma cholesterol in LDL measurement (mass/volume) Serum or plasma cholesterol in LDL measurement (mass/volume) 55 60 - 130 12/20/2017 [facility] Serum or plasma cholesterol measurement (mass/volume) Serum or plasma cholesterol measurement (mass/volume) 146 0 - 199 12/20/2017 [facility] Serum or plasma creatine kinase MB measurement (mass/volume) Serum or plasma creatine kinase MB measurement (mass/volume) 22.70 0 - 5.0 12/20/2017 [facility] Serum or plasma creatine kinase measurement (enzymatic activity/volume) Serum or plasma creatine kinase measurement (enzymatic activity/volume) 285 29 - 168 12/20/2017 [facility] Serum or plasma total cholesterol/cholesterol in HDL mass ratio Serum or plasma total cholesterol/cholesterol in HDL mass ratio 2.5 3.0 - 3.6 12/20/2017 [facility] Serum or plasma triglyceride measurement (mass/volume) Serum or plasma triglyceride measurement (mass/volume) 166 0 - 149 12/20/2017 [facility] Plasma globulin measurement (mass/volume) Plasma globulin measurement (mass/volume) 3.2 2.3 - 3.5 12/20/2017 [facility] Serum or plasma alanine aminotransferase measurement (enzymatic activity/volume) Serum or plasma alanine aminotransferase measurement (enzymatic activity/volume) 33 0 - 55 12/20/2017 [facility] Serum or plasma albumin measurement (mass/volume) Serum or plasma albumin measurement (mass/volume) 3.0 3.5 - 5.0 12/20/2017 [facility] Serum or plasma albumin/globulin mass ratio Serum or plasma albumin/globulin mass ratio 0.9 0.8 - 2.0 12/20/2017 [facility] Serum or plasma alkaline phosphatase measurement (enzymatic activity/volume) Serum or plasma alkaline phosphatase measurement (enzymatic activity/volume) 44 40 - 150 12/20/2017 [facility] Serum or plasma protein measurement (mass/volume) Serum or plasma protein measurement (mass/volume) 6.2 6.5 - 8.1 12/20/2017 [facility] Serum or plasma total bilirubin measurement (mass/volume) Serum or plasma total bilirubin measurement (mass/volume) 1.2 0.2 - 1.2 12/20/2017 [facility] Aspartate Amino Transf (AST/SGOT) 37 5 - 34 12/20/2017 [facility] Blood culture Blood culture NO GROWTH AFTER 72 HOURS 12/19/2017 [facility] Lactic Acid Level 13.3 4.5 - 19.8 12/19/2017 [facility] Serum or plasma magnesium measurement (mass/volume) Serum or plasma magnesium measurement (mass/volume) 1.8 1.3 - 2.1 12/19/2017 [facility] B-Type Natriuretic Peptide 118.2 0 - 100 12/19/2017 [facility] Urine human chorionic gonadotropin (hCG) detection Urine human chorionic gonadotropin (hCG) detection NEGATIVE NEGATIVE 12/19/2017 [facility] Vital Signs Vital Sign Value Date Comments Source Encounters Location Location Details Encounter Type Encounter Number Reason For Visit Attending Provider ADM Date DC Date Status Source Discharged Inpatient [id number] DANILO CHANG MD 12/19/2017 12/23/2017 [facility] Procedures Procedure Code Date Perfomer Comments Source X-ray of chest, two views [id number] 12/23/[address] [facility] Computed tomography of chest with contrast [id number] 12/19/[address] [facility]
[2018-06-19 23:52] LABS: BASOPHILS % 0.3 % (0.0-1.0); EOSINOPHILS # (AUTO) 0.5 (0.0-0.4); EOSINOPHILS % 3.5 % (0.0-6.0); HEMATOCRIT 37.8 % (34.2-44.1); HEMOGLOBIN 12.3 g/dL (12.0-16.0); LYMPHOCYTES # (AUTO) 3.6 (1.0-3.2); LYMPHOCYTES % 27.1 % (18.0-39.1); MEAN CORPUSCULAR HEMOGLOBIN 29.5 pg (28-32); MEAN CORPUSCULAR HGB CONC 32.5 g/dL (31-35); MEAN CORPUSCULAR VOLUME 90.6 fL (81-99); MONOCYTES # (AUTO) 0.6 (0.2-0.8); MONOCYTES % 4.5 % (4.4-11.3); NEUTROPHILS # (AUTO) 8.4 (2.1-6.9); NEUTROPHILS % 64.2 % (38.7-80.0); PLATELET COUNT 326 x10e3/uL (140-360); RED BLOOD COUNT 4.17 x10e6/uL (3.6-5.1); RED CELL DISTRIBUTION WIDTH 13.2 % (11.7-14.4)
[2018-06-19 23:54] LABS: CLARITY,URINE CLEAR (CLEAR); COLOR,URINE YELLOW (YELLOW); LEUKOCYTE ESTERASE ,URINE NEGATIVE (NEGATIVE); NITRITE,URINE NEGATIVE (NEGATIVE)
[2018-06-19 23:55] LABS: BILIRUBIN,URINE NEGATIVE (NEGATIVE); KETONES,URINE NEGATIVE (NEGATIVE); PROTEIN,URINE DIPSTICK NEGATIVE (NEGATIVE); URINE UROBILINOGEN 0.2 mg/dL (0.2 - 1)
[2018-06-19] MEDS ORDERED: ZYRTEC10 M3 PO (23:58)
[2018-06-19 23:59] LABS: INR 0.84
[2018-06-20] VITALS (8 sets, daily range): BP systolic 105–129; BP diastolic 54–67
[2018-06-20] LABS: PARTIAL THROMBOPLASTIN TIME 25.5 seconds (23.8-35.5)
[2018-06-20] MEDS ORDERED: METOPROLOL SUC100 MG PO (00:01)
[2018-06-20] MEDS ORDERED: BUMETANIDE2 MG PO (00:01)
[2018-06-20] MEDS ORDERED: POTASSIUM CHLO20 ME1 PO (00:01)
[2018-06-20] MEDS ORDERED: ENTRESTO PO (00:01)
--- NOTE | 2018-06-20 00:01 | Diagnostic Imaging Report ---
EXAMINATION: CHEST 2 VIEWS INDICATION: ^CHEST PAIN X3-4 HRS, PACEMAKER PLACED 04/2018 COMPARISON: Chest x-ray 06/10/2018. 12/23/2017. FINDINGS: PA and lateral views TUBES and LINES: Left-sided ICD with 3 leads. LUNGS: Lungs are well inflated. There are bibasilar atelectasis. There is mild prominence of the central pulmonary vasculature, consistent with pulmonary venous congestion. PLEURA: No pleural effusion or pneumothorax. HEART AND MEDIASTINUM: The cardiomediastinal silhouette is unremarkable. BONES AND SOFT TISSUES: No acute osseous lesion. Soft tissues are unremarkable. UPPER ABDOMEN: No free air under the diaphragm. IMPRESSION: Mild nonspecific central pulmonary venous congestion. No evidence of fluid overload. Signed by: Dr. Regan Torres M.D. on 06/19/2018 11:58 PM
[2018-06-20 00:05] LABS: BACTERIA,URINE MODERATE /HPF; EPITHELIAL CELLS,URINE MODERATE /LPF
[2018-06-20 00:09] LABS: ALANINE AMINOTRANSFERASE 10 IU/L (0-55); ALBUMIN 3.5 g/dL (3.5-5.0); ALBUMIN/GLOBULIN RATIO 0.9 (0.8-2.0); ALKALINE PHOSPHATASE 66 IU/L (40-150); BLOOD UREA NITROGEN 14 mg/dL (7-26); BUN/CREATININE RATIO 18 (6-25); CALCIUM 9.7 mg/dL (8.4-10.2); CARBON DIOXIDE 27 mmol/L (22-29); CHLORIDE 101 mmol/L (98-107); CREATINE KINASE 63 IU/L (29-168); CREATININE, SERUM 0.77 mg/dL (0.57-1.11); EST GLOMERULAR FILTRATION RATE > 60 ML/MIN (60-); GLUCOSE 143 mg/dL (74-118); SODIUM 138 mmol/L (136-145)
[2018-06-20] MEDS ORDERED: ONDANSETRON HCL INJ 2MG/ML 2ML 2 MG/ML VIAL IV PRN (02:15)
--- NOTE | 2018-06-20 03:07 | NUR ---
RECEIVED PT TO UNIT ROOM 113 VIA WHEELCHAIR ACCOMPANIED BY ER NURSE FAIZAN.PT AAO X 3.NO S/S OF DISTRESS NOTED.RESPIRATIONS EVEN/NON LABORED.PT DENIES CHEST PAIN CURRENTLY,BUT C/O LEG CRAMPS 10/18.WILL MEDICATE PER MAY.V/S CHECKED.ORIENTED PT TO ROOM,BATHROOM,CALL LIGHT/TV REMOTE AT THIS TIME.INSTRUCTED PT TO CALL FOR ASSISTANCE NEEDED BY USING CALL LIGHT.PT VERBALIZED UNDERSTANDING.BED IN LOW/LOCKED POSITION.CALL LIGHT WITHIN EASY REACH.
[2018-06-20] MEDS: HYDROCODONE/APAP 5MG-325MG TAB PO PRN (03:13)
--- NOTE | 2018-06-20 07:24 | NUR ---
REPORT GIVEN TO ONCOMING NURSE.WALKING ROUNDS MADE.PT RESTING IN BED WITH NO S/S OF DISTRESS.
[2018-06-20] MEDS: FAMOTIDINE 20 MG/2 ML VIAL IV SCH ×2 (09:00→12:30)
[2018-06-20] MEDS: ASPIRIN 81 MG CHEW TAB PO SCH (09:00)
[2018-06-20 10:07] LABS: CREATINE KINASE MB 0.6 ng/mL (0-5.0)
--- NOTE | 2018-06-20 10:25 | NUR ---
MD MENDEZ INTO SEE PT, DISCUSSED POC Addendum: 06/20/18 at 1233 by Colette Hwang RN AT 1230 MD ORDOÑEZ SEE PT, DISCUSSED POC, PT MADE AWARE OF CURRENT BILAT LE PAIN AND CHEST PAIN
--- NOTE | 2018-06-20 12:20 | NUR ---
PT C/O LAC IV "BURNING", REMOVED, NEW 20G TO R HAND BY RN, PT TOLERATED WELL,
--- NOTE | 2018-06-20 16:03 | NUR ---
PT RESTING, VOICES NO C/O AT THIS TIME, TELEPHONED MD MENDEZ TO MAKE AWARE OF LAB RESULTS, PHONE BUSY , WILL ATTEMPT AGAIN
--- NOTE | 2018-06-20 16:13 | NUR ---
TELEPHONED MD MENDEZ , SPOKE WITH MARIANGEL, AWAITING CALL BACK
[2018-06-20] MEDS ORDERED: ONDANSETRON HCL 4 MG ORAL DISINTEGRATING TAB PO PRN (16:30)
--- NOTE | 2018-06-20 16:57 | NUR ---
SPOKE WITH MD MENDEZ, MADE AWARE OF LAB VALUES AND THAT PT REPORTED THAT SHE HAS NOT VOIDED ALL DAY , ORDERS NOTED
[2018-06-20] MEDS ORDERED: NON-FORMULARY MEDICATION (Bumetanide 2 MG) PO SCH (17:00)
[2018-06-20 17:12] LABS: CREATINE KINASE MB 0.4 ng/mL (0-5.0)
[2018-06-20] MEDS ORDERED: BUMETANIDE 1 MG TAB PO SCH (17:15)
--- NOTE | 2018-06-20 17:32 | NUR ---
PER MD ORDER, BLADDER SCAN COMPLETED, 118-236ML NOTED, PT MEDICATED PER MD VANESSA ORDER, PT EDUCATED TO CALL IF NEED TO GO VOID, PT VERBALIZED UNDERSTANDING, CALL LIGHT WITHIN REACH
--- NOTE | 2018-06-20 19:16 | Diagnostic Imaging Report ---
EXAM: CT Chest WITH contrast (PE Protocol) INDICATION: Chest pain. Leg cramps. Pulmonary embolism. COMPARISON: 06/19/2018 TECHNIQUE: Chest was scanned utilizing a multidetector helical scanner from the lung apex through the level of the diaphragm after administration of IV contrast. Thin section reconstructions were obtained with special concentration on the pulmonary arteries. Coronal and sagittal reformations were obtained. Pulmonary embolism protocol was performed. IV CONTRAST: 100 mL of Isovue-370 COMPLICATIONS: None RADIATION DOSE: Total DLP: 594.78 mGy*cm Estimated effective dose: (DLP x 0.014 x size factor) mSv CTDIvol has been reviewed. It is below the limits set by the Radiation Protocol Committee (RPC). Dose modulation, iterative reconstruction, and/or weight based adjustment of the mA/kV was utilized to reduce the radiation dose to as low as reasonably achievable. FINDINGS: LINES/ TUBES: Left-sided ICD with 3 leads.. LUNGS AND AIRWAYS: No filling defect is identified within the pulmonary arteries to the segmental level. The lungs are unremarkable. Airways are normal. PLEURA: The pleural spaces are clear. HEART AND MEDIASTINUM: The thyroid gland is normal. No mediastinal, hilar or axillary lymphadenopathy. The heart is enlarged in size. There is no pericardial effusion. . Main pulmonary artery measures 2.5 cm in diameter and the ascending aorta measures 2.8 cm. UPPER ABDOMEN: Unremarkable BONES: The visualized bony thorax is within normal limits. SOFT TISSUES: Unremarkable. IMPRESSION: No pulmonary emboli. Cardiomegaly. Signed by: Dr. Wicho Rivas M.D. on 06/20/2018 7:13 PM
[2018-06-20] MEDS: FAMOTIDINE 20 MG TAB PO SCH (20:15)
--- NOTE | 2018-06-20 20:15 | NUR ---
PAGED DR. DELAROSA FOR CHEST CT RESULT. WAITING FOR CALL BACK.
[2018-06-20] MEDS ORDERED: IOPAMIDOL 370 MG/ML 200 ML INFUS..BTL INJ ONE (22:09)
[2018-06-20] MEDS ORDERED: SODIUM CHLORIDE 0.9% 50ML 50 ML ONE (22:09)
[2018-06-21] VITALS (8 sets, daily range): BP systolic 104–125; BP diastolic 51–75
--- NOTE | 2018-06-21 01:05 | Consultation ---
DATE OF CONSULTATION: 06/20/2018 Cardiology Consultation REASON FOR ADMISSION: Chest pain. HISTORY OF PRESENT ILLNESS: This is a 32-year-old woman with nonischemic cardiomyopathy suspected to be secondary to acute myocarditis, hypertension, and hyperlipidemia, who presents with complaints of chest pain. The patient reports she developed sharp chest pain at around 9:00 p.m., 10/10 in severity. The pain initially occurred intermittently, lasting minutes at a time, but then persisted. This was associated with arm and leg aches as well as nausea. The pain was worse with lying down, but she did not note any alleviating factors. She denies any fever, chills, shortness of breath, or diaphoresis. She continues to have orthopnea, but denies any dyspnea on exertion or PND. She reports she has gained 7 pounds since her last visit in the office and does report she has had recent travel. She had a 4-hour long trip twice this past weekend by car. REVIEW OF SYSTEMS: Negative as per HPI. PAST MEDICAL HISTORY: 1. Nonischemic cardiomyopathy. 2. Hypertension. 3. Hyperlipidemia. PAST SURGICAL HISTORY: section. ALLERGIES: NO KNOWN DRUG ALLERGIES. MEDICATIONS: Please see EMR. SOCIAL HISTORY: No tobacco, alcohol, or illicit drugs. FAMILY HISTORY: No family history of heart disease. PHYSICAL EXAMINATION: VITAL SIGNS: Temperature 97.8 degrees, pulse 80, respiratory rate 20, blood pressure 135/60, and oxygen saturation 97% room on room air. GENERAL: Awake, alert, in no acute distress. HEENT: Normocephalic, atraumatic. Pupils are equal. No scleral icterus. NECK: Supple. No thyroid or cervical lymphadenopathy. No carotid bruits. LUNGS: Clear to auscultation bilaterally. No wheezes or crackles. CARDIOVASCULAR: Normal rate. Regular rhythm. No murmur. Normal S1, S2. Soft and nontender. EXTREMITIES: No edema. NEUROLOGIC: Nonfocal exam. LABORATORY AND IMAGING DATA: Labs are normal except there is central pulmonary venous congestion. No evidence of fluid overload. EKG; electronic ventricular pacemaker. IMPRESSION: 1. Chest pain. 2. Nonischemic cardiomyopathy, status post biventricular ICD. 3. Hypertension. 4. Hyperlipidemia. RECOMMENDATIONS: 1. Trend cardiac enzymes to rule out myocardial infarction. Check D-dimer, given recent car ride, if elevated, we will obtain a CTA of the chest to rule out pulmonary embolism. We will also check a CRP to rule out pericarditis, given her worsening of the pain with laying down. 2. Resume home cardiac medications. MD BALDEMAR Ulloa/LILLIANL /[id number]
[2018-06-21 06:47] LABS: CHOL/HDL RATIO 2.1 (3.0-3.6)
[2018-06-21] MEDS: METOPROLOL SUCCINATE 50 MG TAB XL PO SCH (10:07)
[2018-06-21] MEDS: ASPIRIN 81 MG CHEW TAB PO SCH (10:07)
[2018-06-21] MEDS: FAMOTIDINE 20 MG TAB PO SCH ×2 (10:07→22:20)
[2018-06-21] MEDS: BUMETANIDE 1 MG TAB PO SCH ×3 (10:08→22:20)
[2018-06-21] MEDS: CELECOXIB 100 MG CAP PO SCH ×2 (10:08→16:40)
--- NOTE | 2018-06-21 12:38 | Progress Note ---
DATE: Cardiology Progress Note SUBJECTIVE: The patient complains of pain in her chest, especially around her recent ICD. Also endorses some shortness of breath that worsens upon lying down. OBJECTIVE: VITAL SIGNS: Temperature 97.1, pulse 84, respiratory rate 18, blood pressure 119/68, oxygen saturation 98% on room air. GENERAL: Alert and oriented x3. Resting comfortably in bed, at the bedside. NECK: Supple. No JVD noted. LUNGS: Clear to auscultation throughout. No wheezing. No crackles noted. CARDIOVASCULAR: Normal rate and rhythm. Normal S1, S2. No murmurs. ABDOMEN: Soft, nontender. LOWER EXTREMITIES: No edema. CARDIOVASCULAR MEDICATIONS: Bumex 2 mg p.o. t.i.d., metoprolol 100 p.o. daily, aspirin 81 p.o. daily, hydrocodone as needed for pain, and Celebrex 200 mg p.o. b.i.d. with meals. LABORATORY DATA: Triglycerides 168. Total cholesterol 129, LDL 34, HDL 62. IMAGING DATA: CT scan from yesterday negative for pulmonary emboli, cardiomegaly noted. Telemetry, ventricularly paced rhythm. IMPRESSION: 1. Atypical chest pain with recent ICD. 2. Nonischemic cardiomyopathy, status post biventricular ICD in April of 2018. 3. Hypertension. 4. Hyperlipidemia. RECOMMENDATIONS: Cardiac enzymes have ruled out myocardial infarction. D-dimer slightly elevated. However, CT negative for pulmonary emboli. Initiate anti-inflammatories at this point to assist with the above reported pain. Uptitrated Bumex due to shortness of breath. We will monitor for a day and discharge likely tomorrow. Continue to monitor this patient on telemetry. Dictated by Gina Cruz NP MD PAUL FarmerV/MONTY /[id number]
--- NOTE | 2018-06-21 14:36 | NUR ---
Nutrition Screen Note RD Recommendation for Physician: Continue diet as ordered Plan of Care: RD following, monitoring for adequacy and tolerance Nutrition reason for involvement: Nutrition Risk Trigger - MST Primary Diagnose(s): Chest pain Ht:65 in Wt:256lbs BMI:42.6 kg/m2 IBW:125lbs RD Assessment:(06/21/2018) Initial encounter with patient. Pt denies any N,V,D, nor has any difficulty chewing or swallowing. Pt denies any wt changes. Good po intake. Current Diet: Cardiac diet Malnutrition Evaluation (06/21/2018) The patient does not meet criteria for a specified degree of malnutrition at this time. Will re-evaluate at follow-up as appropriate. Diet Education Needs Assessment: Diet education not indicated. Diet Adequacy: Meeting calorie needs, Meeting protein needs, Meeting fluid needs Tolerance: Tolerating PO Nutrition Care Level: олег Hart RD, LD, [facility]
[2018-06-21] MEDS: HYDROCODONE/APAP 5MG-325MG TAB PO PRN (22:20)
--- NOTE | 2018-06-21 23:30 | NUR ---
PATIENT REPORTED CHEST PAIN WHERE THE PACEMAKER IS SURGICAL PLACED AND RADIATED ABOVE AND BELOW THE PLACEMENT OF THE PACEMAKER. INITIAL PAIN AT 6-7/10 AND AFTER TAKING NORCO, PAIN REDUCED TO 3/10. CONTINUE TO MONITOR PATIENT'S CHEST PAIN.
[2018-06-22] VITALS: BP 113/58
[2018-06-22 04:00] VITALS: BP 128/72
[2018-06-22 07:30] VITALS: BP 110/62
[2018-06-22 08:56] LABS: ALANINE AMINOTRANSFERASE 12 IU/L (0-55); ALBUMIN 3.2 g/dL (3.5-5.0); ALBUMIN/GLOBULIN RATIO 0.8 (0.8-2.0); ALKALINE PHOSPHATASE 59 IU/L (40-150); ANION GAP 10.6 mmol/L (8-16); BLOOD UREA NITROGEN 14 mg/dL (7-26); BUN/CREATININE RATIO 18 (6-25); CARBON DIOXIDE 30 mmol/L (22-29); CHLORIDE 98 mmol/L (98-107); CREATININE, SERUM 0.78 mg/dL (0.57-1.11); EST GLOMERULAR FILTRATION RATE > 60 ML/MIN (60-); GLUCOSE 108 mg/dL (74-118); POTASSIUM 3.6 mmol/L (3.5-5.1); SODIUM 135 mmol/L (136-145)
[2018-06-22 09:30] VITALS: BP 110/67
[2018-06-22] MEDS: FAMOTIDINE 20 MG TAB PO SCH (09:30)
[2018-06-22] MEDS: ASPIRIN 81 MG CHEW TAB PO SCH (09:30)
[2018-06-22] MEDS: METOPROLOL SUCCINATE 50 MG TAB XL PO SCH (09:30)
[2018-06-22] MEDS: CELECOXIB 100 MG CAP PO SCH (09:30)
[2018-06-22] MEDS: BUMETANIDE 1 MG TAB PO SCH (09:30)
[2018-06-22] MEDS ORDERED: CELEBREX100 MG PO (11:22)
[2018-06-22] MEDS ORDERED: ZOFRAN4 MG PO (11:22)
--- NOTE | 2018-06-22 11:27 | Progress Note ---
DATE: Cardiology Progress Note SUBJECTIVE: The patient reports some ongoing pain surrounding her ICD. Denies any shortness of breath at this time. Does report some nausea this morning. OBJECTIVE: VITAL SIGNS: Temperature 97.7, pulse 69, respiratory rate 18, blood pressure 110/62, oxygen saturation 98% on room air. GENERAL: Alert and oriented x3. Resting comfortably in bed. at the bedside. NECK: Supple. No JVD noted. LUNGS: Clear to auscultation throughout. No wheezing. No rhonchi or crackles. CARDIOVASCULAR: Normal rate and rhythm. Normal S1, S2. No murmurs noted. ABDOMEN: Soft, nontender. LOWER EXTREMITIES: No edema. CARDIOVASCULAR MEDICATIONS: Bumex 2 mg p.o. t.i.d., metoprolol 100 mg p.o. daily, aspirin 81 mg p.o. daily. LABORATORY DATA: Sodium 135, potassium 3.6, BUN 14, creatinine 0.78, Telemetry, atrially and ventricularly paced rhythm. IMPRESSION: 1. Atypical chest pain, status post recent ICD in April. 2. Ischemic cardiomyopathy, status post biventricular ICD. 3. Hypertension. 4. Hyperlipidemia. 5. Nausea. RECOMMENDATIONS: Okay to discharge from a cardiac standpoint. We will follow up with Dr. Woods towards the end of this week. Replete electrolytes. Initiate NSAIDs for pain control for the next 2 weeks. We will continue to monitor closely after discharge. Dictated by Gina Cruz NP MD MARLON Farmer/MONTY /[id number]
== END 2018-06-22 11:50 | disposition home or self-care (01) ==
LOC: ER 23:14 → ERHOLD 06-20 02:17 → MED/SURG 06-20 03:00
PROVIDERS: ADMIT Internal Medicine Interventional Cardiology; ATTEND Internal Medicine Interventional Cardiology
DX: R07.89 Other chest pain (principal); I10 Essential (primary) hypertension; I25.10 Atherosclerotic heart disease of native coronary artery without angina pectoris; E78.5 Hyperlipidemia, unspecified; Z95.810 Presence of automatic (implantable) cardiac defibrillator; Z82.49 Family history of ischemic heart disease and other diseases of the circulatory system; I42.8 Other cardiomyopathies; R11.0 Nausea
CPT/HCPCS: 36415 ×4; 71046; 71260; 80053 ×2; 80061; 81001; 82550 ×2; 82553 ×2; 83735; 83880 ×2; 84484 ×2; 84702; 85025; 85379; 85610; 85730; 86140; 93005; 93306; 99284; G0378 ×3; Q0162; Q9967

== ENCOUNTER 2020-02-03 19:45 | Emergency (ER) | payer OTHER ==
[~2020-02-03 19:45] MED LIST changes: +BUMETANIDE2 MG PO; +CELEBREX100 MG PO; +ENTRESTO PO; +METOPROLOL SUC100 MG PO; +POTASSIUM CHLO20 ME1 PO; +ZOFRAN4 MG PO; +ZYRTEC10 M3 PO
--- NOTE | 2020-02-03 19:50 | NUR ---
pt just signed out of [facility] when she was told she needed to be admitted to a covid pui bed for pneumonia. pt presents here becuase she did want to be admitted to a covid unit, i explained to her we would need to do labs, xray, vitals and covid test. at this point pt states she does not want to be worked up and withdrew her request for medical screening
--- NOTE | 2020-02-03 19:50 | NUR ---
patient called to triage, was told that she will have to go through process of being seen in the ED again, lab work and be evaluated and treated in the ER, pt refuses to have any work up done in the ED, pt denies shortness of breath, patient left ED and withdrew request for MSE, Dr. Moser spoke to patient
--- OUTSIDE RECORDS SUMMARY | 2020-02-03 19:58 | XMS REPORT | Continuity of Care Document ---
Author Author [facility] t Organization [facility] Address [facility] [place] [address] Phone Unavailable Care Team Providers Care Film Flat Inspector Name Role Phone SURY RAMIREZ DO PCP Gordon ALLEN, Chrisamaandriyi Attphys MARLI ANNE RD Attphys Unavailable PRINCESS WARREN M.D. Attphys Unavailable SOUTH, DEVICE Attphys Unavailable WELLERFLOR TROTTER Attphys Unavailable ISAURAALVAAN Attphys Unavailable Tc MENDEZ Attphys Unavailable CHANG, SOUHEIL Attphys Unavailable ISAURA WESLEY Admphys Unavailable CHANG, SOUHEIL Admphys Unavailable Payers Payer Name Policy Type Policy Number Effective Date Expiration Date Jony Campos Pos [id number] 2016 00:00:00 NATHAN perez [facility] Problems Condition Name Condition Details Condition Category Status Onset Date Resolution Date Last Treatment Date Treating Clinician Comments Source Snoring Snoring Problem Active [facility] Cough Cough Problem Active [facility] Pharyngitis, acute Pharyngitis, acute Problem Active [facility] Acute maxillary sinusitis Acute maxillary sinusitis Problem Active [facility] Diabetes mellitus Diabetes mellitus Problem Active [facility] Cardiomyopathy, nonischemic Cardiomyopathy, nonischemic Problem Active [facility] Other hyperlipidemia Other hyperlipidemia Problem Active [facility] Obesity, Class II, BMI 35-39.9 Obesity, Class II, BMI 35-39.9 Problem Active [facility] BMI 37.0-37.9, adult BMI 37.0-37.9, adult Problem Active [facility] Chest pain Chest pain Problem Active [facility] Left bundle branch block (LBBB) LBBB (left bundle branch block) Pro blem Active [facility] Multifocal pneumonia Multifocal pneumonia Problem Active [facility] Allergies, Adverse Reactions, Alerts Allergy Name Allergy Type Status Severity Reaction(s) Onset Date Inacti ve Date Treating Clinician Comments Source Eggs Allergy to Substance Active swelling 2018-06-21 00:00:00 [facility] EGGS DA Active U 2007-11-07 00:00:00 [facility] No Known Contrast Allergies DA Active U 2007-11-07 00:00: 00 [facility] No Known Drug Allergies DA Active U 2007-11-07 00:00:00 [facility] No Known Other Allergies DA Active U 2007-11-07 00:00:00 [facility] Family History Family Member Diagnosis Comments Start Date Stop Date Source Unknown Family Member Family history of asthma Other [facility] Unknown Family Member Family history of Allergy Other [facility] Mother Family history of diabetes mellitus [facility] Mother Family history of thyroid disease [facility] Mother Family history of obesity [facility] Social History Smoking Status Start Date Stop Date Source Never smoked tobacco (finding) [facility] Medications Ordered Medication Name Filled Medication Name Start Date Stop Da te Current Medication? Ordering Clinician Indication Dosage Frequency Signature (SIG) Comments Components Source Accu-Chek Guide In Vitro Strip Accu-Chek Guide In Vitro Stri p 2019-06-18 00:00:00 Yes PRINCESS WARREN M.D. Check BG 2x a day [facility] Accu-Chek FastClix Lancets Accu-Chek FastClix Lancets 2019-06-18 00:0 0:00 Yes PRINCESS WARREN M.D. Check BG 2x a day [facility] Accu-Chek Guide Me w/Device Kit Accu-Chek Guide Me w/Device Kit 2019-06-18 00:00:00 Yes PRINCESS WARREN M.D. For daily glucose mo nitoring [facility] Pantoprazole Sodium 40 MG Oral Tablet Delayed Release Pantoprazole Sodium 40 MG Oral Tablet Delayed Release 2019-06-18 00:00:00 Yes PRINCESS WARREN M.D. [facility] Femynor 0.25-35 MG-MCG Oral Tablet Femynor 0.25-35 MG-MCG Or al Tablet 2019-06-18 00:00:00 Yes PRINCESS WARREN M.D. [facility] Montelukast Sodium 10 MG Oral Tablet Montelukast Sodium 10 M G Oral Tablet 2015-01-10 00:00:00 Yes KENISHA DUNBAR M.D. TAKE 1 TABLET BY MOUTH EVERY DAY [facility] Bumetanide 2 MG Oral Tablet Bumetanide 2 MG Oral Tablet Yes PRINCESS WARREN M.D. 1 QD Per console attendant [facility] Jardiance 10 MG Oral Tablet Jardiance 10 MG Oral Tablet Yes PRINCESS WARREN M.D. 1 QD TAKE 1 TABLET DAILY [facility] Entresto 24-26 MG Oral Tablet Entresto 24-26 MG Oral Tablet Yes 1 Q0.5D TAKE 1 TABLET BY MOUTH TWICE A DAY [facility] ZyrTEC Allergy 10 MG Oral Tablet ZyrTEC Allergy 10 MG Oral Tablet Yes 1 TAKE 1 TABLET DAILY [facility]. [facility] Rosuvastatin Calcium 10 MG Oral Tablet Rosuvastatin Calcium 10 M G Oral Tablet Yes TAKE 1 TABLET EVERY NIGHT [facility] Aspirin 81 MG TABS Aspirin 81 MG TABS Yes 1 QD TA KE 1 TABLET DAILY. [facility] Citalopram Hydrobromide 20 MG Oral Tablet Citalopram H ydrobromide 20 MG Oral Tablet Yes 1 QD TAKE 1 TABLET DAILY [facility] Spironolactone 25 MG Oral Tablet Spironolactone 25 MG Oral Tablet Yes 1 QD TAKE 1 TABLET DAILY [facility] Magnesium 250 MG Oral Tablet Magnesium 250 MG Oral Tablet Y es 1 Q0.25D TAKE 1 TABLET 4 TIMES DAILY [facility] K-Tab 20 MEQ Oral Tablet Extended Release K-Tab 20 MEQ Oral Tablet Extended Release Yes PRINCESS WARREN M.D. 1 tablet 2x a day [facility] B-12 1000 MCG Oral Tablet B-12 1000 MCG Oral Tablet Yes PRINCESS WARREN M.D. TAKE ONE (1) TABLET(S) BY MOUTH ONCE A DAY. [facility] Metoprolol Tartrate 50 MG Oral Tablet Metoprolol Tartrate 50 MG Ora l Tablet Yes PRINCESS WARREN M.D. TAKE 1 TABLET EVERY 12 H OURS. Per console attendant [facility] Aspirin 81 Mg Tab.chew Aspirin 81 Mg Tab.chew Yes 81 Daily [facility] Atorvastatin Calcium (Lipitor) 20 Mg Tablet Atorvastat in Calcium (Lipitor) 20 Mg Tablet Yes 20 Daily [facility] Bumetanide 2 Mg Tablet Bumetanide 2 Mg Tablet Yes 2 Twice A Day [facility] Celecoxib (Celebrex*) 100 Mg Capsule Celecoxib (Celebrex*) 100 Mg C apsule Yes 100 Twice A Day [facility] Cetirizine Hcl (Zyrtec) 10 Mg Capsule Cetirizine Hcl (Zyrtec) 10 Mg Capsule Yes 10 Daily [facility] Entresto 24-26 Mg Tab Entresto 24-26 Mg Tab Yes 1 Twice A Day [facility] Femynor 0.25-35 Mg Femynor 0.25-35 Mg Yes 1 Da janette [facility] Metoprolol Succinate 100 Mg Tab.er.24h Metoprolol Succinate 100 Mg Tab.er.24h Yes 1 Daily [facility] Montelukast Sodium (Singulair) 10 Mg Tablet Montelukas t Sodium (Singulair) 10 Mg Tablet Yes 10 Bedtime [facility] Ondansetron Hcl (Zofran*) 4 Mg Tablet Ondansetron Hcl (Zofran*) 4 M g Tablet Yes 4 Every 8 Hours as needed for Nausea [facility] Potassium Chloride 20 Meq Tab.er.prt Potassium Chloride 20 Meq Tab. er.prt Yes 1 Daily [facility] E , E , 2018-06-19 00:00:00 No [facility] Metoprolol Tartrate (Lopressor) 25 Mg Tab, 25 Mg Oral Metoprolol Tartrate (Lopressor) 25 Mg Tab, 25 Mg Oral 2018-06-19 00:00:00 No 25 Daily [facility] Spironolactone (Aldactone) 25 Mg Tablet, Spironolacton e (Aldactone) 25 Mg Tablet, 2018-06-19 00:00:00 No Daily [facility] Spironolactone (Aldactone) 25 Mg Tablet, Spironolacton e (Aldactone) 25 Mg Tablet, 2017-12-23 00:00:00 No [facility] Vital Signs Vital Name Observation Time Observation Value Comments Source Systolic blood pressure 2019-10-20 10:55:00 100 mm[Hg] [facility] Diastolic blood pressure 2019-10-20 10:55:00 66 mm[Hg] [facility] Systolic blood pressure 2019-10-20 10:40:00 99 mm[Hg] Loca tion: LUE; Position: Sitting [facility] Diastolic blood pressure 2019-10-20 10:40:00 64 mm[Hg] Loc ation: LUE; Position: Sitting [facility] Body height 2019-10-20 10:40:00 67 [in_us] [facility] Weight 2019-10-20 10:40:00 237.25 [lb_av] [facility] Body mass index (BMI) [Ratio] 2019-10-20 10:40:00 37.16 kg/m2 [facility] Body temperature 2019-10-20 10:40:00 97.7 [degF] Method: Temporal [facility] Heart Rate 2019-10-20 10:40:00 80 /min [facility] Body height 2019-07-23 11:15:00 67 [in_us] [facility] Weight 2019-07-23 11:15:00 245.9 [lb_av] [facility] Body mass index (BMI) [Ratio] 2019-07-23 11:15:00 38.51 kg/m2 [facility] Systolic blood pressure 2019-06-18 14:10:00 114 mm[Hg] [facility] Diastolic blood pressure 2019-06-18 14:10:00 70 mm[Hg] [facility] Weight 2019-06-18 14:10:00 248.6 [lb_av] [facility] Body mass index (BMI) [Ratio] 2019-06-18 14:10:00 38.94 kg/m2 [facility] Heart Rate 2019-06-18 14:10:00 91 /min [facility] Systolic blood pressure 2019-06-18 13:28:00 105 mm[Hg] Loca tion: LUE; Position: Sitting [facility] Diastolic blood pressure 2019-06-18 13:28:00 70 mm[Hg] Loc ation: LUE; Position: Sitting [facility] Weight 2019-06-18 13:28:00 248.375 [lb_av] [facility] Body mass index (BMI) [Ratio] 2019-06-18 13:28:00 38.9 kg/m2 [facility] Heart Rate 2019-06-18 13:28:00 91 /min [facility] Body height 2019-06-18 13:28:00 67 [in_us] [facility] Procedures Procedure Date / Time Performed Performing Clinician Sour e [QL] MICROALBUMIN, RANDOM URINE (W/CREATININE) 2019-06-18 00:00: 00 [facility] [QL] T4, FREE 2019-06-18 00:00:00 [facility] [QL] TSH, 3RD GENERATION 2019-06-18 00:00:00 [facility] [QL] GAD65, IA-2, AND INSULIN AUTOANTIBODY 2019-06-18 00:00:00 [facility] [QL] C-PEPTIDE 2019-06-18 00:00:00 [facility] [QL] CBC (INCLUDES DIFF/PLT) 2019-06-18 00:00:00 [facility] [QL] HEPATIC FUNCTION PANEL 2019-06-18 00:00:00 [facility] Computed tomography of chest with contrast 2018-06-20 00:00:00 DANILO RIOJAS [facility] X-ray of chest, two views 2018-06-19 00:00:00 LORENZO HATFIELD I [facility] X-ray of chest, two views 2018-06-10 00:00:00 DANILO MENDEZ [facility] X-ray of chest, two views 2017-12-23 00:00:00 DANILO CHANG [facility] MEASURE OF CARDIAC SAMPL & PRESSURE, L HEART, PERC APPROACH 2017-12-23 00:00:00 ISAURA WESLEY [facility] FLUOROSCOPY OF MULT COR ART USING L OSM CONTRAST 2017-12-23 00:00:00 [facility] FLUOROSCOPY OF LEFT HEART USING LOW OSMOLAR CONTRAST 2017-12 00:00:00 [facility] Computed tomography of chest with contrast 2017-12-19 00:00: 00 EDE LAWSON [facility] History of Implantable Cardioverter-Defibrillator [facility] History of Section [facility] Plan of Care Planned Activity Planned Date Details Comments Source Future Appointment 2020-02-08 09:30:00 Cate SÁNCHEZ [facility] Encounters Start Date/Time End Date/Time Encounter Type Admission Type Attendi [facility] Care Department Encounter ID Source 2018-09-23 08:33:56 Outpatient SE CAR [id number] [facility] 2020-01-25 00:00:00 2020-01-25 00:00:00 Telephone Aisha Leyva [facility] [id number] 2019-12-17 10:00:00 2019-12-17 10:00:00 Appointment; MARLI ANNE RD WRIGHT, TISH, RD [facility] [id number] [facility] 2019-10-20 10:30:00 2019-10-20 10:30:00 Appointment; PRINCESS WARREN M .D. CHIU, ALICE, M.D. [facility] [id number] [facility] 2019-09-08 13:45:00 2019-09-08 13:45:00 Appointment; BROOKS, DEVICE SOUTH, DEVICE U[facility] [id number] [facility] 2019-07-23 10:00:00 2019-07-23 10:00:00 Appointment; MARLI ANNE RD WRIGHT, TISH, RD UTP [facility] [id number] [facility] 2019-06-18 13:30:00 2019-06-18 13:30:00 Appointment; PRINCESS WARREN M .D. CHIU, ALICE, M.D. [facility] [id number] [facility] 2019-05-13 11:15:00 2019-05-13 11:15:00 Appointment; FLOR WELLER JOSE UTP [facility] [id number] [facility] 2018-11-19 09:45:00 2018-11-19 09:45:00 Appointment; FLOR WELLER JOSE UTP [facility] [id number] [facility] 2018-08-26 11:02:00 2018-08-26 11:02:00 Outpatient [facility] CAR [id number] [facility] 2018-07-09 09:00:00 2018-07-09 09:00:00 Appointment; FLOR WELLER JOSE UTP [facility]TP [id number] [facility] 2018-06-20 02:17:00 2018-06-22 11:50:00 Discharged Inpatient (obs) 1 WESLEY DELAROSA [facility] [id number] [facility] 2018-06-11 09:45:00 2018-06-11 09:45:00 Appointment; FLOR WELLER JOSE UTP [facility]TP [id number] [facility] 2018-06-10 09:40:00 2018-06-10 09:40:00 Registered Clinic 3 DANILO MENDEZ [facility] [id number] [facility] 2018-04-30 08:45:00 2018-04-30 08:45:00 Appointment; SOUTH, DEVICE SOUTH, DEVICE UTP [facility]TP [id number] [facility] 2018-03-26 10:30:00 2018-03-26 10:30:00 Appointment; FLOR WELLER JOSE UTP [facility]TP [id number] [facility] 2017-12-19 21:33:00 2017-12-23 15:45:00 Discharged Inpatient 1 DANILO CHANG [facility] [id number] [facility] Results Test Description Test Time Test Comments Results Result Comments Source AMMONIA 2020-02-03 17:27:00 Test Item AMMONIA (test code = AMM) 22 umol/L 11-32 N B-TYPE NATRIURETIC [id number] 17:12:00* Test Item Value Reference Range Interpretation Comments B-TYPE NATRIURETIC PEPTIDE (test code = BNP) 89.94 pgram/mL 0-100 N - CT ABD PELVIS [id number] 15:55:00 [facility] : 1985 S ex: F Name: JO ANAYA [facility] : 1985 Ag e/S: 34 / F [address] [place] [address] Unit #: [id number] Loc: [place] [address] Phys: Cherry Corcoran MD Acct: [id number] Dis Date: Status: ADM IN PHONE #: [phone] Exam Date: 02/03/2020 1533 FAX #: [phone] Reason : nausea EXAMS: CPT CODE: [id number] CT ABD PELVIS W/CONT 75978 HISTORY: Shortness of breath and hypoxia . COMPARISON: Chest x-ray from same day and CT chest from same day . Location: [facility]. CTA chest with contrast: Automated exposure control. 3-D images. Unremarkable aorta without aneurysm or dissection. Well-opacified SVC and the visualized neck vasculature. No pulmonary embolism. Unremarkable thyroid glands. Esophageal wall is not th ickened. No pathologic adenopathy. Moderate cardiomegaly without pericardi al effusion. Subcutaneous tissues and the musculature are no rmal in appearance. Left ICD with the leads in the right atrium and right ventricle noted again. Dense consolidation in the apical seg ment of the right lower lobe. Lung glass infiltrates throughout the right lung suggestive of infectious process. No effusion or congestion. No bronc hiectasis, honeycombing or fibrosis or endobronchial lesions. IMPRESSION: Dense consolidation in the apical segment of t he right lower lobe posteromedially. Groundglass infiltrates from the ri ght lung consistent with infectious process. Left lung is clear. No effu ford or congestion. No pathologic adenopathy. No pulmo nary embolism. Unremarkable aorta. CT abdomen with c ontrast: Hepatic parenchyma enhanced homogeneously without mas s or lesions or architectural distortion. Gallbladder is without radiopa que stones. Portal vein and hepatic artery are patent. The liver is chapin uring 22.3 cm in length. The spleen is not enlarged an d enhanced homogeneously. The stomach distended incompletely however it is within normal limits. Pancreas is enhancing homogeneously. Unremarkable adrenals. PAGE 1 Signed Report (CONTINUED) Name: JO MENESES [facility] : 1985 Age/S: 34 / F [address] [facility] Unit #: [id number] Loc: [place], [place] [address] Phys: Cherry Corcoran MD Acct: [id number] Dis Date: Status: ADM IN PHONE #: [phone] Exam Date: 02/03/2020 1533 FAX #: [phone] Reason: nausea EXAMS: CPT CO DE: [id number] CT ABD PELVIS W/CONT 26158 <Continued> Kidneys are free from hydroureteronephrosis. Homogeneous enhancement. Bilateral excretion is noted. No pathologic adenopathy. Well-opacified abdominal and pelvic vasculature. No bowel obstruction or colitis or diverticulitis or enteritis. Constipation. CT PELVIS: Appendix is not visible with certainty but no inflammatory changes are noted. Pelvic bowel loops are unobstructed. Constipation. Unremarkable uterus and ovaries with follicular change. Unremarkable urinary bladder. No free fluid or free air or abscess. Subcutaneous tissues and the musculature are normal in appearance. No lytic or blastic lesions noted within the bony skeleton. IMPRESSION: No acute intra-abdominal or intrapelvic pathology. at 1555 Reported and signed by: Dakotah Begum M.D. CC: Wisam Garcia III, MD; Cherry Corcoran MD Technologist:Hetal Clark RT(R); DOMINICK Davis CTDI: DLP: Trnscb Date/Time: 02/03/2020 (5537) [email or web address].[email or web address] Orig Print D/T: S: 02/03/2020 (6484) PAGE 2 Signed Report - CTA CHEST FOR [id number] 15:55:00 [facility])Name: JO MENESES : 1985 S ex: F Name: JO ANAYA [facility] : 1985 Ag e/S: 34 / F [address] [place] [address] Unit #: [id number] Loc: [place] [address] Phys: Cherry Corcoran MD Acct: [id number] Dis Date: Status: ADM IN PHONE #: [phone] Exam Date: 02/03/2020 1533 FAX #: [phone] Reason : sob, hypoxia EXAMS: CPT CODE: [id number] [place] [address] HISTORY: Shortness of breath and hypoxia . COMPARISON: Chest x-ray from same day and CT chest from same day . Location: [facility]. CTA chest with contrast: Automated exposure control. 3-D images. Unremarkable aorta without aneurysm or dissection. Well-opacified SVC and the visualized neck vasculature. No pulmonary embolism. Unremarkable thyroid glands. Esophageal wall is not th ickened. No pathologic adenopathy. Moderate cardiomegaly without pericardi al effusion. Subcutaneous tissues and the musculature are no rmal in appearance. Left ICD with the leads in the right atrium and right ventricle noted again. Dense consolidation in the apical seg ment of the right lower lobe. Lung glass infiltrates throughout the right lung suggestive of infectious process. No effusion or congestion. No bronc hiectasis, honeycombing or fibrosis or endobronchial lesions. IMPRESSION: Dense consolidation in the apical segment of t he right lower lobe posteromedially. Groundglass infiltrates from the ri ght lung consistent with infectious process. Left lung is clear. No effu ford or congestion. No pathologic adenopathy. No pulmo nary embolism. Unremarkable aorta. CT abdomen with c ontrast: Hepatic parenchyma enhanced homogeneously without mas s or lesions or architectural distortion. Gallbladder is without radiopa que stones. Portal vein and hepatic artery are patent. The liver is chapin uring 22.3 cm in length. The spleen is not enlarged an d enhanced homogeneously. The stomach distended incompletely however it is within normal limits. Pancreas is enhancing homogeneously. Unremarkable adrenals. PAGE 1 Signed Report (CONTINUED) Name: JO MENESES [facility] : 1985 Age/S: 34 / F [address] [facility] Unit #: [id number] Loc: [place], [place] [address] Phys: Cherry Corcoran MD Acct: [id number] Dis Date: Status: ADM IN PHONE #: [phone] Exam Date: 02/03/2020 1533 FAX #: [phone] Reason: sob, hypoxia EXAMS: CPT [place] DE: [id number] [place] [address] <Continued> Kidneys are free from hydroureteronephrosis. Homogeneous enhancement. Bilateral excretion is noted. No pathologic adenopathy. Well-opacified abdominal and pelvic vasculature. No bowel obstruction or colitis or diverticulitis or enteritis. Constipation. CT PELVIS: Appendix is not visible with certainty but no inflammatory changes are noted. Pelvic bowel loops are unobstructed. Constipation. Unremarkable uterus and ovaries with follicular change. Unremarkable urinary bladder. No free fluid or free air or abscess. Subcutaneous tissues and the musculature are normal in appearance. No lytic or blastic lesions noted within the bony skeleton. IMPRESSION: No acute intra-abdominal or intrapelvic pathology. at 1555 Reported and signed by: Dakotah Begum M.D. CC: Wisam Garcia III, MD; Cherry Corcoran MD Technologist:Hetal Clark RT(R); DOMINICK Davis CTDI: DLP: Trnscb Date/Time: 02/03/2020 (0073) [email or web address] Orig Print D/T: S: 02/03/2020 (0907) PAGE 2 Signed Report - CT CHEST W/O [id number] 15:43:00 [facility])Name: JO MENESES : 1985 S ex: F Name: JO ANAYA [facility] : 1985 Ag e/S: 34 / F [address] [facility] Unit #: [id number] Loc: [place] [address] Phys: Betsy Snyder MSN Acct: [id number] Dis Date: Status: ADM IN PHONE #: [phone] Exam Date: 02/03/2020 1525 FAX #: [phone] Reason : PNA VS EDEMA EXAMS: CPT CODE: [id number] CT CHEST W/O CONTRAST 71128 HISTORY: Pneumonia versus edema. COMPARISON: Chest x-ray from February 03, 2020. Location: [facility] CT chest without contrast: Automated exposure control. Dense consolidation in the superior segment of the right lower lobe posteriorly. Vague groundglass opacity within the rest of the right lung as well. This is an infectious process. No congestion. No effusion is note d either. No bronchiectasis, honeycombing or fibrosis. Unremarkabl e thyroid glands. Normal caliber unopacified aorta and pulmonary arteries. Left ICD with the leads in the right atrium and right ventricle. Mild car diomegaly which is unusual for patient's age. No pericardial effusion. Visualized upper abdomen is within normal limits. The subcutaneous tissues and the musculature are normal in appearance. IMPRES FORD: Dense consolidation in the superior segment of the right lower lobe suggestive of infectious etiology. Groundglass infiltrates t hroughout the right lung. No effusion. No congestion. No pathologic jacob opathy. at 1543 Reported and signed by: Dakotah Begum M.D. CC: Betsy Snyder MSN; Ryan Reed DO; [facility] III,Wisam Howard MD Technologist:Darya Clark RT(R); DOMINICK Davis CTDI: DLP: Trnscb Date/Time: 02/03/20 (154) [email or web address] Orig Print D/T: S: 02/03/2020 (9615) PAGE 1 Signed Report URINALYSIS [id number] 14:44:00* Test Item Value Reference Range Interpretation Comments UA COLOR (test code = COLU) Light-Yellow YELLOW UA APPEARANCE (test code = APPU) CLEAR CLEAR UA GLUCOSE DIPSTICK (test code = DGLUU) >1000 (4+) mg/dL NEGATIVE UA BILIRUBIN DIPSTICK (test code = BILU) NEGATIVE mg/dL NEGATIVE UA KETONE DIPSTICK (test code = KETU) NEGATIVE mg/dL NEGATIVE UA SPECIFIC GRAVITY (test code = SGU) 1.021 1.001-1.035 UA BLOOD DIPSTICK (test code = ANNA MARIE) 0.03 mg/dL (Trace) mg/dL NEGATI VE A UA PH DIPSTICK (test code = DALE) 6.0 5.0-8.0 UA PROTEIN DIPSTICK (test code = PROU) 50 (1+) mg/dL NEGATIVE A UA UROBILINIOGEN DIPSTICK (test code = URO) Normal mg/dL NEGATIVE UA NITRITE DIPSTICK (test code = FEMI) NEGATIVE NEGATIVE UA LEUKOCYTE ESTERASE W REFLEX (test code = LEUUR) NEGATIVE Magalis/uL NEGATIVE UA WBC (test code = WBCU) 0-5 per HPF 0-5 UA RBC (test code = RBCU) 3-5 #/HPF 0-5 UA EPITHELIAL CELLS (test code = EPIU) FEW per HPF FEW UA BACTERIA (test code = BACU) FEW #/HPF NONE A UA HYALINE CAST (test code = HYALU) 11-20 #/LPF 0-5 A UA MUCUS (test code = MUCU) FEW #/LPF FEW Urine Source? Clean CatchDRUGS OF ABUSE SCREEN [id number] 14:44:00* Test Item Value Reference Range Interpretation Comments URN COCAINE (test code = COCAURN) NEGATIVE <300 ng/mL URN CANNABINOIDS (test code = CANNABURN) NEGATIVE <50 ng/mL URN AMPHETAMINE (test code = AMPHETURN) NEGATIVE <1000 ng/mL URN BARBITURATE (test code = BARBITURN) NEGATIVE <200 ng/mL URN BENZODIAZEPINE (test code = BENZOURN) NEGATIVE <200 ng/mL URN OPIATES (test code = OPIATURN) NEGATIVE <300 ng/mL URN PHENCYCLIDINE (PCP) (test code = PHENCURN) NEGATIVE <25 ng/ mL URN METHADONE (test code = METHAURN) NEGATIVE <300 ng/mL Urine Source? Clean CatchURINALYSIS [id number] 14:29:00* Test Item Value Reference Range Interpretation Comments UA COLOR (test code = COLU) Light-Yellow YELLOW UA APPEARANCE (test code = APPU) CLEAR CLEAR UA GLUCOSE DIPSTICK (test code = DGLUU) >1000 (4+) mg/dL NEGATIVE UA BILIRUBIN DIPSTICK (test code = BILU) NEGATIVE mg/dL NEGATIVE UA KETONE DIPSTICK (test code = KETU) NEGATIVE mg/dL NEGATIVE UA SPECIFIC GRAVITY (test code = SGU) 1.021 1.001-1.035 UA BLOOD DIPSTICK (test code = ANNA MARIE) 0.03 mg/dL (Trace) mg/dL NEGATI VE A UA PH DIPSTICK (test code = DALE) 6.0 5.0-8.0 UA PROTEIN DIPSTICK (test code = PROU) 50 (1+) mg/dL NEGATIVE A UA UROBILINIOGEN DIPSTICK (test code = URO) Normal mg/dL NEGATIVE UA NITRITE DIPSTICK (test code = FEMI) NEGATIVE NEGATIVE UA LEUKOCYTE ESTERASE W REFLEX (test code = LEUUR) NEGATIVE Magalis/uL NEGATIVE UA WBC (test code = WBCU) 0-5 per HPF 0-5 UA RBC (test code = RBCU) 3-5 #/HPF 0-5 UA EPITHELIAL CELLS (test code = EPIU) FEW per HPF FEW UA BACTERIA (test code = BACU) FEW #/HPF NONE A UA HYALINE CAST (test code = HYALU) 11-20 #/LPF 0-5 A UA MUCUS (test code = MUCU) FEW #/LPF FEW Urine Source? Clean CatchDRUGS OF ABUSE SCREEN [id number] 14:29:00* Test Item Value Reference Range Interpretation Comments URN COCAINE (test code = COCAURN) <300 ng/mL URN CANNABINOIDS (test code = CANNABURN) <50 ng/mL URN AMPHETAMINE (test code = AMPHETURN) <1000 ng/mL URN BARBITURATE (test code = BARBITURN) <200 ng/mL URN BENZODIAZEPINE (test code = BENZOURN) <200 ng/mL URN OPIATES (test code = OPIATURN) <300 ng/mL URN PHENCYCLIDINE (PCP) (test code = PHENCURN) <25 ng/ mL URN METHADONE (test code = METHAURN) <300 ng/mL Urine Source? Clean CatchBASIC METABOLIC [id number] 12:46:00* Test Item Value Reference Range Interpretation Comments SODIUM (test code = NA) 137 mmol/L 136-145 N POTASSIUM (test code = K) 4.0 mmol/L 3.5-5.1 N CHLORIDE (test code = CL) 104.0 mmol/L 98-107 N CARBON DIOXIDE (test code = CO2) 19.0 mmol/L 21-32 L ANION GAP (test code = GAP) 18.0 10-20 N GLUCOSE (test code = GLU) 195 mg/dL 74-106 H BLOOD UREA NITROGEN (test code = BUN) 21 mg/dL 7-18 H GLOMERULAR FILTRATION RATE (test code = GFR) 51 mL/min >=60 Estimated GFR by using Modified MDRD formula.Chronic kidney disease is defined as either kidney damageor GFR <60 mL/min/1.73 m2 for >3 months. CREATININE (test code = CREAT) 1.20 mg/dL 0.55-1.02 H Note change in reference range due to change in reagent. BUN/CREATININE RATIO (test code = BUN/CREA) 17.6 10-20 N CALCIUM (test code = CA) 9.2 mg/dL 8.5-10.1 N HEPATIC FUNCTION [id number] 12:46:00* Test Item Value Reference Range Interpretation Comments TOTAL PROTEIN (test code = PROT) 8.3 gram/dL 6.4-8.2 H ALBUMIN (test code = ALB) 3.5 g/dL 3.4-5.0 N GLOBULIN (test code = GLOB) 4.8 gram/dL 2.7-4.2 H ALBUMIN/GLOBULIN RATIO (test code = A/G) 0.7 0.75-1.50 L BILIRUBIN TOTAL (test code = BILT) 0.50 mg/dL 0.0-1.0 N BILIRUBIN DIRECT (test code = BILD) 0.16 mg/dL 0.0-0.20 N SGOT/AST (test code = AST) 16 IUnit/L 15-37 N SGPT/ALT (test code = ALT) 17 IUnit/L 12-78 N ALKALINE PHOSPHATASE TOTAL (test code = ALKP) 80 IUnit/L 45-117 N Note change in reference range due to change in reagent. [id number] 12:46:00* Test Item Value Reference Range Interpretation Comments LIPASE (test code = LIP) 54 U/L 73.0-393.0 L [id number] 12:46:00* Test Item Value Reference Range Interpretation Comments MAGNESIUM (test code = MAG) 2.9 mg/dL 1.8-2.4 H HCG SERUM [id number] 12:46:00* Test Item Value Reference Range Interpretation Comments HCG SERUM QUAL (test code = HCGQL) NEGATIVE NEGATIVE This HCGQL test is NOT applicable for MALE patients.Check with nurse about probable order error.If Tumor Marker Test needed, nurse should order test "HCGTU"(Test #550.66868) [id number] 12:46:00* Test Item Value Reference Range Interpretation Comments TROPONIN-I (test code = TROPI) <0.015 ng/mL 0-0.045 N [id number] 12:46:00* Test Item Value Reference Range Interpretation Comments ALCOHOL (test code = ALC) < 3 mg/dL 0.0-3.0 N -- INTERPRETIVE DATA NOTE: POSITIVE SCREENING RESULTS SHOULD BE CONSIDERED PRESUMPTIVE.WHEN COLLECTED FOR MEDICAL PURPOSES ONLY. SPECIMEN WILL NOTBE COLLECTED BY CHAIN OF CUSTODY.IF A CONFIRMATION OF POSITIVE RESULTS IS DESIRED, ACONFIRMATION TEST MUST BE REQUESTED BY THE PHYSICIAN AT ANADDITIONAL CHARGE TO THE PATIENT. PROTHROMBIN [id number] 12:39:00* Test Item Value Reference Range Interpretation Comments PROTHROMBIN TIME PATIENT (test code = PTP) 10.8 seconds 9.0-14.0 N INTERNATIONAL NORMAL RATIO (test code = INR) 0.9 0.8-1.2 N The therapeutic range for oral anticoagulant therapy formost indications is an international normalized ratio (INR)of between 2.0 and 3.0. The recommended therapeutic INRrange for various clinical situations is listed below: Clinical Situation INR range Pulmonary e mbolism treatment (2.0-3.0)Venous thrombosis treatmentVenous thrombosis prophylaxis (high risk surgery)Prevention of systemic embolism from: Acute myocardial infarction Valvular heart disease Atrial fibrillation Mechanical prosthetic heart valves (2.5-3.5) IS PATIENT ON ANTICOAGULANTS? NTHROMBOPLASTIN TIME [id number] 12:39:00* Test Item Value Reference Range Interpretation Comments THROMBOPLASTIN TIME PARTIAL (test code = PTT) 32.6 seconds 23.0-37. 0 N IS PATIENT ON ANTICOAGULANTS? NBASIC METABOLIC [id number] 12:36:00* Test Item Value Reference Range Interpretation Comments SODIUM (test code = NA) 137 mmol/L 136-145 N POTASSIUM (test code = K) 4.0 mmol/L 3.5-5.1 N CHLORIDE (test code = CL) 104.0 mmol/L 98-107 N CARBON DIOXIDE (test code = CO2) mmol/L 21-32 ANION GAP (test code = GAP) 10-20 GLUCOSE (test code = GLU) mg/dL 74-106 BLOOD UREA NITROGEN (test code = BUN) mg/dL 7-18 GLOMERULAR FILTRATION RATE (test code = GFR) mL/min >=60 CREATININE (test code = CREAT) mg/dL 0.55-1.02 BUN/CREATININE RATIO (test code = BUN/CREA) 10-20 CALCIUM (test code = CA) mg/dL 8.5-10.1 HEPATIC FUNCTION [id number] 12:36:00* Test Item Value Reference Range Interpretation Comments TOTAL PROTEIN (test code = PROT) gram/dL 6.4-8.2 ALBUMIN (test code = ALB) g/dL 3.4-5.0 GLOBULIN (test code = GLOB) gram/dL 2.7-4.2 ALBUMIN/GLOBULIN RATIO (test code = A/G) 0.75-1.50 BILIRUBIN TOTAL (test code = BILT) mg/dL 0.0-1.0 BILIRUBIN DIRECT (test code = BILD) mg/dL 0.0-0.20 SGOT/AST (test code = AST) IUnit/L 15-37 SGPT/ALT (test code = ALT) IUnit/L 12-78 ALKALINE PHOSPHATASE TOTAL (test code = ALKP) IUnit/L 45-117 [id number] 12:36:00* Test Item Value Reference Range Interpretation Comments LIPASE (test code = LIP) U/L 73.0-393.0 [id number] 12:36:00* Test Item Value Reference Range Interpretation Comments MAGNESIUM (test code = MAG) mg/dL 1.8-2.4 HCG SERUM [id number] 12:36:00* Test Item Value Reference Range Interpretation Comments HCG SERUM QUAL (test code = HCGQL) NEGATIVE NEGATIVE This HCGQL test is NOT applicable for MALE patients.Check with nurse about probable order error.If Tumor Marker Test needed, nurse should order test "HCGTU"(Test #550.26837) [id number] 12:36:00* Test Item Value Reference Range Interpretation Comments TROPONIN-I (test code = TROPI) ng/mL 0-0.045 [id number] 12:36:00* Test Item Value Reference Range Interpretation Comments ALCOHOL (test code = ALC) mg/dL 0-3 BASIC METABOLIC [id number] 12:34:00* Test Item Value Reference Range Interpretation Comments SODIUM (test code = NA) 137 mmol/L 136-145 N POTASSIUM (test code = K) 4.0 mmol/L 3.5-5.1 N CHLORIDE (test code = CL) 104.0 mmol/L 98-107 N CARBON DIOXIDE (test code = CO2) mmol/L 21-32 ANION GAP (test code = GAP) 10-20 GLUCOSE (test code = GLU) mg/dL 74-106 BLOOD UREA NITROGEN (test code = BUN) mg/dL 7-18 GLOMERULAR FILTRATION RATE (test code = GFR) mL/min >=60 CREATININE (test code = CREAT) mg/dL 0.55-1.02 BUN/CREATININE RATIO (test code = BUN/CREA) 10-20 CALCIUM (test code = CA) mg/dL 8.5-10.1 HEPATIC FUNCTION [id number] 12:34:00* Test Item Value Reference Range Interpretation Comments TOTAL PROTEIN (test code = PROT) gram/dL 6.4-8.2 ALBUMIN (test code = ALB) g/dL 3.4-5.0 GLOBULIN (test code = GLOB) gram/dL 2.7-4.2 ALBUMIN/GLOBULIN RATIO (test code = A/G) 0.75-1.50 BILIRUBIN TOTAL (test code = BILT) mg/dL 0.0-1.0 BILIRUBIN DIRECT (test code = BILD) mg/dL 0.0-0.20 SGOT/AST (test code = AST) IUnit/L 15-37 SGPT/ALT (test code = ALT) IUnit/L 12-78 ALKALINE PHOSPHATASE TOTAL (test code = ALKP) IUnit/L 45-117 [id number] 12:34:00* Test Item Value Reference Range Interpretation Comments LIPASE (test code = LIP) U/L 73.0-393.0 [id number] 12:34:00* Test Item Value Reference Range Interpretation Comments MAGNESIUM (test code = MAG) mg/dL 1.8-2.4 HCG SERUM [id number] 12:34:00* Test Item Value Reference Range Interpretation Comments HCG SERUM QUAL (test code = HCGQL) NEGATIVE [id number] 12:34:00* Test Item Value Reference Range Interpretation Comments TROPONIN-I (test code = TROPI) ng/mL 0-0.045 [id number] 12:34:00* Test Item Value Reference Range Interpretation Comments ALCOHOL (test code = ALC) mg/dL 0-3 - XR CHEST 1 [id number] 12:15:00 [facility])Name: JO MENESES : 1985 S ex: F FAX: Cherry Samson [phone] [place]: B St: PRE [facility] 1985 Age/S: 34/F [address] Unit #: [id number] Loc: [place] [address] Phys: Cherry Corcoran MD Acct: [id number] Dis Date: Stat us: PRE ER PHONE #: [phone] Exam Date: 02/03/2020 1204 FAX #: [phone] Reason: WEAKNE SS EXAMS: CPT CODE: [id number] XR CHEST 1 V 43014 REASON FOR EXAM: WEAKNESS E xam Order Date: 02/03/2020 11:13 AM Ordering M.Nikki.: Cherry vicente MD PROCEDURE: - XR CHEST 1 V COMPARISON: None FINDINGS: There is a hazy opacity in the right lower lobe. Remainder of the lungs are clear. There is no pleural effusion or pneumot horax. Pulmonary vascularity is within normal limits. Cardio mediastinal silhouette is normal in size for technique. The mediastinal co ntours are within normal limits. Left subclavian ICD/pacemaker is present with leads in the right atrium, right ventricle, and coronary sinus. Musculoskeletal structures are within normal limits. The visualized upper abdomen is within normal limits. IMPRES FORD: Opacity in the right lower lobe may represent any combination of a small layering effusion, atelectasis, and pneumonia. Remainder of the lungs are clear. Location: [facility] Electronical ly Signed by Davy Jacome MD on 02/03/2020 at 1215 Report ed and signed by: Davy Jacome MD CC: Cherry Corcoran MD Technologist: Dominick VICENTE(R) Trnscrd Date/Time/By: 02/03/2020 (9967) : By: [email or web address] Orig Print D/T: S: 02/03/2020 (6379) PAGE 1 Signed Report COVID 19 INHOUSE [id number] 12:10:00* Test Item Value Reference Range Interpretation Comments COVID 19 INHOUSE AG (test code = [id number]) NEGATIVE - CT HEAD/BRAIN W/O [id number] 12:09:00 [facility] ([facility]Name: JO MENESES : 1985 S ex: F Name: JO ANAYA [facility] : 1985 Ag e/S: 34 / F [address] [facility] Unit #: [id number] Loc: [place] [address] Phys: Cherry Corcoran MD Acct: [id number] Dis Date: Status: PRE ER PHONE #: [phone] Exam Date: 02/03/2020 1148 FAX #: [phone] Reason : ams EXAMS: CPT CODE: [id number] CT HEAD/BRAIN W/O CONT 74298 HISTORY: ams TECHNIQUE: N oncontrast 2.[address] of the head. Examination acquired within 24 k[address]sey rs of arrival. Automated exposure control for dose reduction. COMPARISON: None FINDINGS: No lacerations or contu sions of the scalp or facial soft tissues. Calvarium and skull base are i ntact. No acute hemorrhage. No intracranial mass, mass effect, or midline shift. No effacement of the sulci or cavazos-white matter interface. No cortical atrophy. No signs of white matter small-vessel disea se. No hydrocephalus.. No extra-axial fluid collection. Visualized paranasal sinuses are clear. Mastoid air cells and middle ear cavities are clear. Orbital contents are unremarkable. IMPRESSION: Negative CT head. Lo cation: HCA at 1209 Reported and signed by: Davy Jacome MD CC: Cherry Corcoran MD Technologist:Soraya sinha,RT(R),CT CTDI: DLP: Trnscb Date/Time: 02/03/2020 (120 9) [email or web address].[email or web address] Orig Print D/T: S: 02/03/2020 (1212) LUIS OROZCO 1 Signed Report CBC W/O [id number] 11:34:00* Test Item Value Reference Range Interpretation Comments WHITE BLOOD CELL (test code = WBC) 12.1 K/mm3 4.5-12.5 N RED BLOOD CELL (test code = RBC) 5.66 mill/mm3 3.7-5.2 H HEMOGLOBIN (test code = HGB) 16.1 gram/dL 11.5-15.5 H HEMATOCRIT (test code = HCT) 51.0 % 36.0-46.0 H MEAN CELL VOLUME (test code = MCV) 90.1 fL 80-98 N MEAN CELL HGB (test code = MCH) 28.4 picogram 27.0-33.0 N MEAN CELL HGB CONCETRATION (test code = MCHC) 31.6 gram/dL 33.0-36. 0 L RED CELL DISTRIBUTION WIDTH (test code = RDW) 13.2 % 11.6-16. 2 N PLATELET COUNT (test code = PLT) 388 K/mm3 150-450 N MEAN PLATELET VOLUME (test code = MPV) 9.4 fL 6.7-11.0 N Glucose (Point of Care In Office)2019-10-20 10:42:00* Test Item Value Reference Range Interpretation Comments Glucose POC Lifescan (test code = Glucose POC Lifescan) 95 [facility][O] Hemoglobin A1c (in office)2019-10-20 10:41:00 * Test Item Value Reference Range Interpretation Comments HEMOGLOBIN A1c (test code = 4548-4) 6.1 [facility][O] Lipid Panel (In Office)2019-10-20 10:41:00* Test Item Value Reference Range Interpretation Comments CHOLESTEROL, TOTAL (test code = 2093-3) 170 HDL CHOLESTEROL (test code = 2085-9) 57 TRIGLYCERIDES (test code = 2571-8) 257 LDL-CHOLESTEROL (test code = 20960-6) 62 NON HDL CHOLESTEROL (test code = NON HDL CHOLESTEROL) 114 T. Chol/HDL Ratio (test code = 9830-1) 3.0 GLUCOSE (test code = 1547-9) 113 [facility][QL] HEPATIC FUNCTION [id number] 11:08:00* Test Item Value Reference Range Interpretation Comments PROTEIN, TOTAL (test code = PROTEIN, TOTAL) 7.1 g/dl 6.1-8.1 N ALBUMIN (test code = ALBUMIN) 4.1 g/dl 3.6-5.1 N GLOBULIN (test code = GLOBULIN) 3.0 {G/DL CALC} 1.9-3.7 N ALBUMIN/GLOBULIN RATIO (test code = ALBUMIN/GLOBULIN RATIO) 1.4 {CALC} 1.0-2.5 N BILIRUBIN, DIRECT; Normal (test code = 40174-4) 0.2 mg/dl < OR = 0.2 N BILIRUBIN, INDIRECT; Normal (test code = 1971-1) 0.8 {MG/DL CHANDAN} 0 .2-1.2 N ALKALINE PHSPHATASE (test code = ALKALINE PHSPHATASE) 59 u/l 31-125 N AST; Normal (test code = 1916-6) 16 u/l 10-30 N ALT; Normal (test code = 1742-6) 20 u/l 6-29 N [facility][Q] BASIC METABOLIC PANEL, [id number] 11:08:00* Test Item Value Reference Range Interpretation Comments GLUCOSE; Above High Threshold (test code = 1547-9) 107 mg/dl 65- 99 Fasting reference interval For someone without known diabetes, a glucose valuebetween 100 and 125 mg/dL is consistent withprediabetes and should be confirmed with afollow-up test. UREA NITROGEN (BUN) (test code = UREA NITROGEN (BUN)) 14 mg/dl 7-25 N CREATININE (test code = CREATININE) 0.79 mg/dl 0.50-1.10 N eGFR NON- (test code = eGFR NON-LAKEISHA N TANZANIAN) 97 {ML/MIN/1.7} > OR = 60 N eGFR (test code = eGFR ) 11 2 {ML/MIN/1.7} > OR = 60 N BUN/CREATININE RATIO (test code = BUN/CREATININE RATIO) NOT APPLICA BLE 6-22 SODIUM (test code = SODIUM) 141 mmol/L 135-146 N POTASSIUM (test code = POTASSIUM) 4.0 mmol/L 3.4-4.8 N CHLORIDE (test code = CHLORIDE) 102 mmol/L 98-110 N CARBON DIOXIDE (test code = CARBON DIOXIDE) 25 mmol/L 20-32 N CALCIUM (test code = CALCIUM) 9.4 mg/dl 8.6-10.2 N [facility][QL] CBC (INCLUDES DIFF/PLT)2019-06-23 11:08:00* Test Item Value Reference Range Interpretation Comments WHITE BLOOD CELL COUNT (test code = WHITE BLOOD CELL COUNT) 8.1 {Thousand/u} 3.8-10.8 N RED BLOOD CELL COUNT (test code = RED BLOOD CELL COUNT) 4.91 {Million/uL} 3.80-5.10 N HEMAGLOBIN; Normal (test code = 71938-3) 13.8 g/dl 11.7-15.5 N HEMATOCRIT; Normal (test code = 4544-3) 42.8 % 35.0-45.0 N MCV; Normal (test code = 787-2) 87.2 fL 80.0-100.0 N MCHC; Normal (test code = 88401-4) 32.2 g/dl 32.0-36.0 N RDW; Normal (test code = 788-0) 12.3 % 11.0-15.0 N PLATELET COUNT; Normal (test code = 777-3) 393 {Thousand/u} 140-400 N MPV; Normal (test code = 11971-7) 10.1 fL 7.5-12.5 N ABSOLUTE NEUTROPHILS (test code = ABSOLUTE NEUTROPHILS) 4585 {cells/uL} 1245-6494 N ABSOLUTE LYMPHOCYTES (test code = ABSOLUTE LYMPHOCYTES) 2592 {cells/uL} 850-3900 N ABSOLUTE MONOCYTES (test code = ABSOLUTE MONOCYTES) 543 {cells/uL} 200-950 N ABSOLUTE EOSINOPHILS (test code = ABSOLUTE EOSINOPHILS) 340 {cells/ uL} 15-500 N ABSOLUTE BASOPHILS (test code = ABSOLUTE BASOPHILS) 41 {cells/uL} 0 -200 N NEUTROPHILS (test code = NEUTROPHILS) 56.6 % N LYMPHOCYTES (test code = LYMPHOCYTES) 32.0 % N MONOCYTES; Normal (test code = 48211-4) 6.7 % N EOSINOPHILS; Normal (test code = 33346-2) 4.2 % N BASOPHILS; Normal (test code = 74948-6) 0.5 % N [facility][QL] T4, [id number] 11:08:00* Test Item Value Reference Range Interpretation Comments T4, FREE (test code = T4, FREE) 1.2 ng/dl 0.8-1.8 N [facility][QL] TSH, 3RD [id number] 11:08:00* Test Item Value Reference Range Interpretation Comments TSH; Normal (test code = 77153-5) 1.43 {MIU/L} N Reference Range > or = 20 Years 0.40-4.50 Ranges First trimester 0.26-2.66 Second trimester 0.55-2.73 Third trimester 0.43-2.91 [facility][QL] [id number] 11:08:00* Test Item Value Reference Range Interpretation Comments C-PEPTIDE (test code = C-PEPTIDE) 4.67 ng/ml 0.80-3.85 [facility][QL] MICROALBUMIN, RANDOM URINE (W/CREATININE) 2019-06-23 11:08:00* Test Item Value Reference Range Interpretation Comments CREATININE, RANDOM URINE (test code = CREATININE, RANDOM URINE) 88 mg/dl 20-275 N MICROALBUMIN (test code = MICROALBUMIN) 0.5 mg/dl N Reference RangeNot established MICROALBUMIN/CREATININE RATIO, RANDOM UR INE (test code = MICROALBUMIN/CREATININE RATIO, RANDOM URINE) 6 {MCG/MG CRE} <30 N The ADA de fines abnormalities in albuminexcretion as follows: Category Result (mcg/mg creatinine) Normal <30Microalbuminuria 30-299 Clinical albuminuria > OR = 300 The ADA recommends that at least two of threespecimens collected within a 3-6 month period beabnormal before considering a patient to bewithin a diagnostic category. [facility][QL] GAD65, IA-2, AND INSULIN AUTOANTIBODY 2019-06-23 11:08:00* Test Item Value Reference Range Interpretation Comments GLUTAMIC ACID DECARBOXYLASE 65 AB (test code = GLUTAMIC ACID DECARBOXYLASE 65 AB) <5 <5 This test was pe rformed using the GAD65 CORI method whichis standardized against the International referencepreparation 97/550. IA-2 ANTIBODY (test code = IA-2 ANTIBODY) <5.4 <5.4 This test was performed using the IA-2 Antibody CORI methodwhich is standardized against the WHO Reference Ispptbw79/550. The reference range reported was establishedspecifically for this test method. INSULIN AUTOANTIBODY (test code = INSULIN AUTOANTIBODY) <0.4 <0.4 [facility][O] Hemoglobin A1c (in office)2019-06-18 13:32:00 * Test Item Value Reference Range Interpretation Comments HEMOGLOBIN A1c (test code = 4548-4) 5.9% [facility] ([facility])2019-06-18 13:31:00* Test Item Value Reference Range Interpretation Comments Glucose POC Lifescan (test code = Glucose POC Lifescan) 94 [facility][O] Lipid Panel (In Office)2019-06-18 13:29:00* Test Item Value Reference Range Interpretation Comments CHOLESTEROL, TOTAL (test code = 2093-3) 166 HDL CHOLESTEROL (test code = 2085-9) 53 TRIGLYCERIDES (test code = 2571-8) 243 LDL-CHOLESTEROL (test code = 46110-8) 64 NON HDL CHOLESTEROL (test code = NON HDL CHOLESTEROL) 112 T. Chol/HDL Ratio (test code = 9830-1) 3.1 GLUCOSE (test code = 1547-9) 91 [facility][L] [id number] 14:20:00* Test Item Value Reference Range Interpretation Comments BUN; Normal (test code = 3094-0) 16 N Creatinine; Normal (test code = 2160-0) 0.76 N eGFR If NonAfricn Am; Normal (test code = 37961-8) 102 N Sodium, Serum; Normal (test code = 2951-2) 137 N Potassium; Normal (test code = 2823-3) 5 N Chloride; Normal (test code = 2075-0) 104 N Carbon Dioxide, Total; Normal (test code = 2027-9) 25 N Calcium, Serum; Normal (test code = 37618-6) 9.6 N [facility]iciansSodium [id number] 09:07:00* Test Item Value Reference Range Interpretation Comments Sodium Level (test code = 2951-2) 135 136-145 L [facility] [id number] 09:07:00* Test Item Value Reference Range Interpretation Comments Potassium Level (test code = 2823-3) 3.6 3.5-5.1 [facility] [id number] 09:07:00* Test Item Value Reference Range Interpretation Comments Chloride Level (test code = 2075-0) 98 98-107 [facility] HospitalCarbon Dioxide [id number] 09:07:00* Test Item Value Reference Range Interpretation Comments Carbon Dioxide Level (test code = 2028-9) 30 22-29 H [facility] HospitalAnion [id number] 09:07:00* Test Item Value Reference Range Interpretation Comments Anion Gap (test code = 51571-0) 10.6 8-16 [facility] HospitalBlood Urea Bcqikttr5156-32-12 09:07:00* Test Item Value Reference Range Interpretation Comments Blood Urea Nitrogen (test code = 3094-0) 14 7-26 [facility] HospitalCreatinine2019-04-14 09:07:00* Test Item Value Reference Range Interpretation Comments Creatinine (test code = 2160-0) 0.78 0.57-1.11 [facility] HospitalBUN/Creatinine Ykqcx9419-84-83 09:07:00* Test Item Value Reference Range Interpretation Comments BUN/Creatinine Ratio (test code = 3097-3) 18 6-25 [facility] HospitalEstimat Glomerular Filtration Rate 2018-06-22 09:07:00* Test Item Value Reference Range Interpretation Comments Estimat Glomerular Filtration Rate (test code = 700599446) > 60 >60 Ranges were taken from the National Kidney Disease Education Program and the [facility] literature.Reference ranges:60 or greater: Pupyjg32-41 ( for 3 consecutive months): Chronic kidney disease 15 or less: Kidney failureMemorial [facility]ann [facility] HospitalGlucose Wzlam9737-21-54 09:07:00* Test Item Value Reference Range Interpretation Comments Glucose Level (test code = ZRA9067) 108 74-118 [facility] HospitalCalcium Syprn4964-08-12 09:07:00* Test Item Value Reference Range Interpretation Comments Calcium Level (test code = 07409-7) 9.0 8.4-10.2 [facility] HospitalTotal Cfgmpcseo4287-36-38 09:07:00* Test Item Value Reference Range Interpretation Comments Total Bilirubin (test code = 1975-2) 0.6 0.2-1.2 [facility] HospitalAspartate Amino Transf (AST/SGOT) 2018-06-22 09:07:00* Test Item Value Reference Range Interpretation Comments Aspartate Amino Transf (AST/SGOT) (test code = Aspartate Amino Transf (AST/SGOT)) 11 5-34 [facility] HospitalAlanine Aminotransferase (ALT/SGPT) 2018-06-22 09:07:00* Test Item Value Reference Range Interpretation Comments Alanine Aminotransferase (ALT/SGPT) (test code = 1742-6) 12 0-55 [facility] HospitalTotal Vcnzqws9367-21-22 09:07:00* Test Item Value Reference Range Interpretation Comments Total Protein (test code = 2885-2) 7.0 6.5-8.1 [facility] HospitalAlbumin2019-04-14 09:07:00* Test Item Value Reference Range Interpretation Comments Albumin (test code = 1751-7) 3.2 3.5-5.0 L [facility] HospitalGlobulin2019-04-14 09:07:00* Test Item Value Reference Range Interpretation Comments Globulin (test code = 58204-1) 3.8 2.3-3.5 H [facility] HospitalAlbumin/Globulin Tzbug5166-72-40 09:07:00 * Test Item Value Reference Range Interpretation Comments Albumin/Globulin Ratio (test code = 1759-0) 0.8 0.8-2.0 [facility] HospitalAlkaline Yjmiegcbxhx4063-81-92 09:07:00* Test Item Value Reference Range Interpretation Comments Alkaline Phosphatase (test code = 6768-6) 59 40-150 [facility] HospitalC-Reactive Ibnwwes0272-71-00 11:18:00* Test Item Value Reference Range Interpretation Comments C-Reactive Protein (test code = 1988-5) 9.3 0.0-4.9 H Performed at: HD - [facility] [address] [id number] Director: Dima Roberson MD, Phone: [phone] Hermann Northeast HospitalB-Type Natriuretic Kowehyg2527-83-57 07:13:00* Test Item Value Reference Range Interpretation Comments B-Type Natriuretic Peptide (test code = 00226-3) 37.9 0-100 [facility] HospitalTriglycerides Fxhyn5270-83-24 06:54:00* Test Item Value Reference Range Interpretation Comments Triglycerides Level (test code = 2571-8) 167 0-149 H [facility] HospitalCholesterol Qopqj2003-70-13 06:54:00* Test Item Value Reference Range Interpretation Comments Cholesterol Level (test code = 2093-3) 129 0-199 Less than 200 mg/dL Low Ebws164 - 239 mg/dL Borderline Zjcx195 m g/dl and greater High Risk [facility] HospitalLDL Bxsdtfcodsq4574-82-49 06:54:00* Test Item Value Reference Range Interpretation Comments LDL Cholesterol (test code = 2089-1) 34 60-130 L [facility] HospitalHDL Evvafcoxddi7990-87-07 06:54:00* Test Item Value Reference Range Interpretation Comments HDL Cholesterol (test code = 2085-9) 62 40-60 H [facility] HospitalCholesterol/HDL Wlvxf8393-38-59 06:54:00 * Test Item Value Reference Range Interpretation Comments Cholesterol/HDL Ratio (test code = 9830-1) 2.1 3.0-3.6 L [facility] HospitalCT CHEST [id number] 19:08:00 [place] [address] Patient Name: JO MENESES MR #: [id number] : Age/Sex: 32/F Req #: [id number] Adm Physician: WESLEY DELAROSA MD Ordered by: DANILO MENDEZ MD Report #: [id number] Location: MED/SURG Room/Bed: [facility] Procedure: 0412-[address]/CT CHEST W Exam Date: 06/20/18 Exam Time: 185 0 REPORT STATUS: Signed EXAM: CT Chest WITH contrast (PE Protocol) INDICATION: Chest pain. Leg cramps. Pulmona ry embolism. COMPARISON: 06/19/2018 TECHNIQUE: Chest was scanned utilizing a multidetector helical scanner from the lung apex through the level of the diaphragm after administration of IV contrast. Thin section reconstruc tions were obtained with special concentration on the pulmonary arteries. Ranjit nal and sagittal reformations were obtained. Pulmonary embolism protocol was p erformed. IV CONTRAST: 100 mL of Isovue-370 COMPLICATIONS: None RADIATION DOSE: Total DLP: 594.78 mGy*cm Estimated effective dos e: (DLP x 0.014 x size factor) mSv CTDIvol has been reviewed. It is below the limits set by the Radiation Protocol Committee (RPC). Dose modulat ion, iterative reconstruction, and/or weight based adjustment of the mA/kV was utilized to reduce the radiation dose to as low as reasonably achievable. FINDINGS: LINES/ TUBES: Left-sided ICD with 3 leads.. LUNGS AND AIR WAYS: No filling defect is identified within the pulmonary arteries to the se gmental level. The lungs are unremarkable. Airways are normal. PLEURA: The pleural spaces are clear. HEART AND MEDIASTINUM: The thyroid gland is n ormal. No mediastinal, hilar or axillary lymphadenopathy. The heart is enlar ged in size. There is no pericardial effusion. . Main pulmonary artery me asures 2.5 cm in diameter and the ascending aorta measures 2.8 cm. UPPER ABDOMEN: Unremarkable BONES: The visualized bony thorax is within normal li mits. SOFT TISSUES: Unremarkable. IMPRESSION: No pulmonary emboli. Cardiomegaly. Signed by: Dr. Raghavendra Rivas M.D. on 06/20/2018 7:13 PM Dictated By: RAGHAVENDRA RIVAS MD, MD 12 Transcribed By: LIANA on 06/20/181912 COPY TO: DANILO WIGGINS MD Human Chorionic Gonadotropin, Ivnf9275-51-69 18:33:00* Test Item Value Reference Range Interpretation Comments Human Chorionic Gonadotropin, Qual (test code = 2118-8) NEGATIVE NEGATIVE [facility] HospitalCreatine Kinase LY6868-69-14 17:13:00* Test Item Value Reference Range Interpretation Comments Creatine Kinase MB (test code = 00774-8) 0.40 0-5.0 [facility] HospitalTroponin J8394-62-39 17:13:00* Test Item Value Reference Range Interpretation Comments Troponin I (test code = CBG1729) 0.008 0-0.300 [facility] HospitalCreatine Oipkia3207-45-06 17:07:00* Test Item Value Reference Range Interpretation Comments Creatine Kinase (test code = 2157-6) 40 29-168 [facility] HospitalD-Dimer Quantitative (PE/DVT)2018-06-20 13:26:00* Test Item Value Reference Range Interpretation Comments D-Dimer Quantitative (PE/DVT) (test code = 18117-2) 0.58 0. 00-0.45 H As with all in vitro diagnostic tests, the test results should be interpreted by the physician in conjunction with clinical findings and other test results.Test results are reported in NEW D-dimer units(ug/mLFEU).[facility] HospitalMagnesium Jdylk4765-61-53 01:00:00* Test Item Value Reference Range Interpretation Comments Magnesium Level (test code = 87549-9) 2.1 1.3-2.1 [facility] HospitalUrine MAU7699-58-31 00:05:00* Test Item Value Reference Range Interpretation Comments Urine WBC (test code = 5821-4) 6-10 0-5 H [facility] HospitalUrine AXY2652-10-96 00:05:00* Test Item Value Reference Range Interpretation Comments Urine RBC (test code = 88504-6) 6-10 0-5 H [facility] HospitalUrine Xsjfoquv4874-57-38 00:05:00* Test Item Value Reference Range Interpretation Comments Urine Bacteria (test code = 03362-6) MODERATE NONE H [facility] HospitalUrine Epithelial Ngprc2113-79-30 00:05:00 * Test Item Value Reference Range Interpretation Comments Urine Epithelial Cells (test code = 43211-2) MODERATE NONE [facility] HospitalActivated Partial Thromboplast Time 2018-06-20 00:00:00* Test Item Value Reference Range Interpretation Comments Activated Partial Thromboplast Time (test code = 77806-1) 25.5 23.8-35.5 [facility] HospitalProthrombin Txvy0879-42-72 23:59:00* Test Item Value Reference Range Interpretation Comments Prothrombin Time (test code = 5902-2) 12.0 11.9-14.5 [facility] HospitalProthromb Time International Ratio 2018-06-19 23:59:00* Test Item Value Reference Range Interpretation Comments Prothromb Time International Ratio (test code = 6301-6) 0.84 Oral Anticoagulant Therapy INR Values:1. Low Intensity Therapy 1.5 - 2.02 . Moderate Intensity Therapy 2.0 - 3.03. High Intensity Therapy(1) 2.5 - 3. 54. High Intensity Therapy(2) 3.0 - 4.05. Panic Value INR > 5.0 [facility] HospitalCHEST 2 EGXUQ4488-10-16 23:57:00 [place] [address] Patient Name: JO MENESES MR #: [id number] : Age/Sex: 32/F Req #: [id number] Adm Physician: Ordered by: LORENZO HATFIELD MD Report #: [id number] Location: ER Room/Bed: Procedure: 0411-00 82 DX/CHEST 2 VIEWS Exam Date: 06/19/18 Exam Time: 2 345 REPORT STATUS: Signed EXAMIN ATION: CHEST 2 VIEWS INDICATION: CHEST PAIN X3-4 HRS, PACEMAKER PLACED 04/2018 COMPARISON: Chest x-ray 06/10/2018. 12/23/2017. FIN DINGS: PA and lateral views TUBES and LINES: Left-sided ICD with 3 leads. LUNGS: Lungs are well inflated. There are bibasilar atelectasis. There is mild prominence of the central pulmonary vasculature, consistent with pulmo nary venous congestion. PLEURA: No pleural effusion or pneumothorax. HEART AND MEDIASTINUM: The cardiomediastinal silhouette is unremarkable. BONES AND SOFT TISSUES: No acute osseous lesion. Soft tissues are unrem arkable. UPPER ABDOMEN: No free air under the diaphragm. IMPRESSIO N: Mild nonspecific central pulmonary venous congestion. No evidence of fluid overload. Signed by: Dr. Regan Wolf M.D. on 06/19/2018 11:58 PM D ictated By: REGAN WOLF MD 57 T ranscribed By: LIANA on 06/19/182357 COPY TO: LORENZO HATFIELD MD White Blood Koutd1755-43-07 23:55:00* Test Item Value Reference Range Interpretation Comments White Blood Count (test code = 6690-2) 13.14 4.8-10.8 H [facility] HospitalRed Blood Kffhn0288-25-05 23:55:00* Test Item Value Reference Range Interpretation Comments Red Blood Count (test code = 789-8) 4.17 3.6-5.1 [facility] HospitalHemoglobin2019-04-11 23:55:00* Test Item Value Reference Range Interpretation Comments Hemoglobin (test code = 27100-1) 12.3 12.0-16.0 [facility] HospitalHematocrit2019-04-11 23:55:00* Test Item Value Reference Range Interpretation Comments Hematocrit (test code = 4544-3) 37.8 34.2-44.1 [facility] HospitalMean Corpuscular Sbhcwf2437-06-26 23:55:00* Test Item Value Reference Range Interpretation Comments Mean Corpuscular Volume (test code = 787-2) 90.6 81-99 [facility] HospitalMean Corpuscular Tesnbvlzzz3650-87-01 23:55:00* Test Item Value Reference Range Interpretation Comments Mean Corpuscular Hemoglobin (test code = 785-6) 29.5 28-32 [facility] HospitalMean Corpuscular Hemoglobin Concent 2018-06-19 23:55:00* Test Item Value Reference Range Interpretation Comments Mean Corpuscular Hemoglobin Concent (test code = 786-4) 32.5 31-35 [facility] HospitalRed Cell Distribution Hmseq7017-38-32 23:55:00* Test Item Value Reference Range Interpretation Comments Red Cell Distribution Width (test code = 95611-9) 13.2 11.7 -14.4 [facility] HospitalPlatelet Wykal0107-04-36 23:55:00* Test Item Value Reference Range Interpretation Comments Platelet Count (test code = 777-3) 326 140-360 [facility] HospitalNeutrophils (%) (Auto)2018-06-19 23:55:00 * Test Item Value Reference Range Interpretation Comments Neutrophils (%) (Auto) (test code = 80615-2) 64.2 38.7-80.0 [facility] HospitalLymphocytes (%) (Auto)2018-06-19 23:55:00 * Test Item Value Reference Range Interpretation Comments Lymphocytes (%) (Auto) (test code = 736-9) 27.1 18.0-39.1 [facility] HospitalMonocytes (%) (Auto)2018-06-19 23:55:00* Test Item Value Reference Range Interpretation Comments Monocytes (%) (Auto) (test code = 5905-5) 4.5 4.4-11.3 [facility] HospitalEosinophils (%) (Auto)2018-06-19 23:55:00 * Test Item Value Reference Range Interpretation Comments Eosinophils (%) (Auto) (test code = 713-8) 3.5 0.0-6.0 [facility] HospitalBasophils (%) (Auto)2018-06-19 23:55:00* Test Item Value Reference Range Interpretation Comments Basophils (%) (Auto) (test code = 706-2) 0.3 0.0-1.0 [facility] HospitalIM GRANULOCYTES %2018-06-19 23:55:00* Test Item Value Reference Range Interpretation Comments IM GRANULOCYTES % (test code = IM GRANULOCYTES %) 0.4 0.0- 1.0 [facility] HospitalNeutrophils # (Auto)2018-06-19 23:55:00* Test Item Value Reference Range Interpretation Comments Neutrophils # (Auto) (test code = 751-8) 8.4 2.1-6.9 H [facility] HospitalLymphocytes # (Auto)2018-06-19 23:55:00* Test Item Value Reference Range Interpretation Comments Lymphocytes # (Auto) (test code = 24949-7) 3.6 1.0-3.2 H [facility] HospitalMonocytes # (Auto)2018-06-19 23:55:00* Test Item Value Reference Range Interpretation Comments Monocytes # (Auto) (test code = 742-7) 0.6 0.2-0.8 [facility] HospitalEosinophils # (Auto)2018-06-19 23:55:00* Test Item Value Reference Range Interpretation Comments Eosinophils # (Auto) (test code = 711-2) 0.5 0.0-0.4 H [facility] HospitalBasophils # (Auto)2018-06-19 23:55:00* Test Item Value Reference Range Interpretation Comments Basophils # (Auto) (test code = 704-7) 0.0 0.0-0.1 [facility] HospitalAbsolute Immature Granulocyte (auto 2018-06-19 23:55:00* Test Item Value Reference Range Interpretation Comments Absolute Immature Granulocyte (auto (melinda t code = Absolute Immature Granulocyte (auto) 0.05 0-0.1 [facility] HospitalUrine Pgvom1848-62-02 23:55:00* Test Item Value Reference Range Interpretation Comments Urine Color (test code = 5778-6) YELLOW YELLOW [facility] HospitalUrine Bwypxfp9201-92-46 23:55:00* Test Item Value Reference Range Interpretation Comments Urine Clarity (test code = 99135-9) CLEAR CLEAR [facility] Specific Ayuqpqg9525-55-03 23:55:00 * Test Item Value Reference Range Interpretation Comments Urine Specific [place] (test code = 5811-5) 1.015 1.010-1.02 5 [facility] HospitalUrine mE8835-56-72 23:55:00* Test Item Value Reference Range Interpretation Comments Urine pH (test code = 12868-2) 5 5-7 [facility] Leukocyte Bnrnfrek2483-02-85 23:55:00* Test Item Value Reference Range Interpretation Comments Urine Leukocyte Esterase (test code = 5799-2) NEGATIVE NEGATIVE [facility] Ermcfdv3307-74-72 23:55:00* Test Item Value Reference Range Interpretation Comments Urine Nitrite (test code = 27931-4) NEGATIVE NEGATIVE [facility] HospitalUrine Afnvekh0433-34-77 23:55:00* Test Item Value Reference Range Interpretation Comments Urine Protein (test code = 5804-0) NEGATIVE NEGATIVE [facility] HospitalUrine Glucose (UA)2018-06-19 23:55:00* Test Item Value Reference Range Interpretation Comments Urine Glucose (UA) (test code = 2349-9) NEGATIVE NEGATIVE [facility] Kpcfsqn7868-04-75 23:55:00* Test Item Value Reference Range Interpretation Comments Urine Ketones (test code = 36136-4) NEGATIVE NEGATIVE [facility] Aeyuifucaboc1798-52-93 23:55:00* Test Item Value Reference Range Interpretation Comments Urine Urobilinogen (test code = 21975-6) 0.2 0.2-1 [facility] Mqjounzpx2348-68-98 23:55:00* Test Item Value Reference Range Interpretation Comments Urine Bilirubin (test code = 1978-6) NEGATIVE NEGATIVE [facility] Cvjfh9783-77-12 23:55:00* Test Item Value Reference Range Interpretation Comments Urine Blood (test code = 32532-5) 1+ NEGATIVE H [facility] CenterCHEST 2 QSFAG8447-54-87 10:27:00 [facility] [address] [place] [address] Patient Name: JO MENESES MR #: [id number] : Age/Sex: 32/F Req #: [id number] Adm Physician: Ordered by: DANILO MENDEZ MD Report #: [id number] Location: [facility] Room/Bed: Procedure: 0402-0 031 DX/CHEST 2 VIEWS Exam Date: 06/10/18 Exam Time: 0945 REPORT STATUS: Signed EX AMINATION: PA and lateral views of the chest. COMPARISON: 12/23/2017 C LINICAL HISTORY: Shortness of breath, pacemaker DISCUSSION: Inte rval placement of a left subclavian approach implantable cardiac device. The b john projects over the left midlung. Leads project over the right atrium, right ventricle, and coronary sinus. Lungs are well-inflated and without consolidat ion, pleural effusion, or pneumothorax. Normal heart size without overt pulmon clint edema. No acute osseous abnormality. IMPRESSION: No acute cardi opulmonary abnormalities. Signed by: Dr. Kelly Cates M.D. on 06/10/2018 10:29 AM Dictated By: KELLY CATES MD 1029 Transcribed By: LIANA on 06/10/18 1029 COPY TO: DANILO MENDEZ MD Blood Lsmatag7055-66-12 21:15:00* Test Item Value Reference Range Interpretation Comments Blood Culture (test code = 40061385) NO GROWTH AFTER 5 DAYS, FINAL REPORT [facility] CenterCHES 2 RVITH6229-58-96 11:30:00 [facility] [address] [place] [address] Patient Name: JO MENESES MR #: [id number] : 1985 Age/Sex: 32/F Req #: [id number] Adm Physician: DANILO CHANG MD Ordered by: DANILO CHANG MD Report #: [id number] Location: [facility] Room/Bed: [place] [address] Procedure: 1015 -0003 DX/CHEST 2 VIEWS Exam Date: 12/23/17 Exam Time : 0630 REPORT STATUS: Signed EXAMINATION: PA and lateral views of e chest. COMPARISON: CT chest with contrast 12/19/2017 CLINICAL HISTOR Y: Pneumonia DISCUSSION: The lungs are well-inflated. Patchy evelia undglass opacities throughout the lungs, though with a lower lung predominance persist and are seen to better advantage on comparison CT. No new consolidati on or effusion. Stable cardiomediastinal contour. No acute osseous abnormality . IMPRESSION: Patchy multifocal opacities felt to represent pulmonary ed carmen are seen to better advantage on comparison CT 12/19/2017. No new consolida tions. Signed by: Dr. Kelly Cates M.D. on 12/23/2017 11:32 AM Dictated By: KELLY CATES MD 31 Transcribed By: LIANA on 12/23/171131 COPY TO: DANILO CHANG MD Prothrombin Grqx9540-33-29 07:36:00* Test Item Value Reference Range Interpretation Comments Prothrombin Time (test code = 5902-2) 13.3 11.9-14.5 [facility] HospitalProthromb Time International Ratio 2017-12-23 07:36:00* Test Item Value Reference Range Interpretation Comments Prothromb Time International Ratio (test code = 6301-6) 0.93 Oral Anticoagulant Therapy INR Values:1. Low Intensity Therapy 1.5 - 2.02 . Moderate Intensity Therapy 2.0 - 3.03. High Intensity Therapy(1) 2.5 - 3. 54. High Intensity Therapy(2) 3.0 - 4.05. Panic Value INR > 5.0 [facility] HospitalActivated Partial Thromboplast Time 2017-12-23 07:36:00* Test Item Value Reference Range Interpretation Comments Activated Partial Thromboplast Time (test code = 72173-9) 62.0 23.8-35.5 [facility] Cskhe8062-39-38 05:44:00* Test Item Value Reference Range Interpretation Comments Sodium Level (test code = 2951-2) 139 136-145 [facility] HospitalPotassium Vyodl2467-33-40 05:44:00* Test Item Value Reference Range Interpretation Comments Potassium Level (test code = 2823-3) 3.2 3.5-5.1 L [facility] HospitalChloride Jhlqe9797-87-17 05:44:00* Test Item Value Reference Range Interpretation Comments Chloride Level (test code = 2075-0) 100 98-107 [facility] HospitalCarbon Dioxide Ytazq2885-69-26 05:44:00* Test Item Value Reference Range Interpretation Comments Carbon Dioxide Level (test code = 2028-9) 24 22-29 [facility] HospitalAnion Ino4874-25-15 05:44:00* Test Item Value Reference Range Interpretation Comments Anion Gap (test code = 94499-5) 18.2 8-16 H [facility] HospitalBlood Urea Uodjjarc2838-77-11 05:44:00* Test Item Value Reference Range Interpretation Comments Blood Urea Nitrogen (test code = 3094-0) 13 - [facility] HospitalCreatinine2018-10-15 05:44:00* Test Item Value Reference Range Interpretation Comments Creatinine (test code = 2160-0) 0.77 0.57-1.11 [facility] HospitalBUN/Creatinine Zfdmj8210-86-48 05:44:00* Test Item Value Reference Range Interpretation Comments BUN/Creatinine Ratio (test code = 3097-3) 17 - [facility] HospitalEstimat Glomerular Filtration Rate 2017-12-23 05:44:00* Test Item Value Reference Range Interpretation Comments Estimat Glomerular Filtration Rate (test code = 857787902) 60- >60 Ranges were taken from the National Kidney Disease Education Program and the [facility] Kid[facility] Foundation literature.Reference ranges:60 or greater: Znkpbm62-38 ( for 3 consecutive months): Chronic kidney disease 15 or less: Kidney failureMemorial Hermann Northeast HospitalGlucose Xfvty3807-42-31 05:44:00* Test Item Value Reference Range Interpretation Comments Glucose Level (test code = NBO5911) 100 74-118 [facility] HospitalCalcium Dmflx5788-79-81 05:44:00* Test Item Value Reference Range Interpretation Comments Calcium Level (test code = 96232-6) 9.3 8.4-10.2 [facility] HospitalTroponin X9553-91-74 05:44:00* Test Item Value Reference Range Interpretation Comments Troponin I (test code = KVB3964) 1.024 0-0.300 H Elevated result called to PETR ROSSI RN at 0543 on 12/23/17 by Franc Gardner.[facility] HospitalWhite Blood Kwppp8789-78-25 05:16:00* Test Item Value Reference Range Interpretation Comments White Blood Count (test code = 6690-2) 10.84 4.8-10.8 H [facility] HospitalRed Blood Qrdtn0606-42-24 05:16:00* Test Item Value Reference Range Interpretation Comments Red Blood Count (test code = 789-8) 4.10 3.6-5.1 [facility] HospitalHemoglobin2018-10-15 05:16:00* Test Item Value Reference Range Interpretation Comments Hemoglobin (test code = 87912-7) 12.1 12.0-16.0 [facility] HospitalHematocrit2018-10-15 05:16:00* Test Item Value Reference Range Interpretation Comments Hematocrit (test code = 4544-3) 36.1 34.2-44.1 [facility] HospitalMean Corpuscular Ppvywy4133-16-16 05:16:00* Test Item Value Reference Range Interpretation Comments Mean Corpuscular Volume (test code = 787-2) 88.0 81-99 [facility] HospitalMean Corpuscular Aztfgozqqp9147-81-47 05:16:00* Test Item Value Reference Range Interpretation Comments Mean Corpuscular Hemoglobin (test code = 785-6) 29.5 28-32 [facility] HospitalMean Corpuscular Hemoglobin Concent 2017-12-23 05:16:00* Test Item Value Reference Range Interpretation Comments Mean Corpuscular Hemoglobin Concent (test code = 786-4) 33.5 31-35 [facility] HospitalRed Cell Distribution Lagyo8975-75-17 05:16:00* Test Item Value Reference Range Interpretation Comments Red Cell Distribution Width (test code = 77702-2) 13.0 11.7 -14.4 [facility] HospitalPlatelet Qlmyf1403-37-59 05:16:00* Test Item Value Reference Range Interpretation Comments Platelet Count (test code = 777-3) 277 140-360 [facility] HospitalNeutrophils (%) (Auto)2017-12-23 05:16:00 * Test Item Value Reference Range Interpretation Comments Neutrophils (%) (Auto) (test code = 44022-0) 60.5 38.7-80.0 [facility] HospitalLymphocytes (%) (Auto)2017-12-23 05:16:00 * Test Item Value Reference Range Interpretation Comments Lymphocytes (%) (Auto) (test code = 736-9) 31.9 18.0-39.1 [facility] HospitalMonocytes (%) (Auto)2017-12-23 05:16:00* Test Item Value Reference Range Interpretation Comments Monocytes (%) (Auto) (test code = 5905-5) 4.7 4.4-11.3 [facility] HospitalEosinophils (%) (Auto)2017-12-23 05:16:00 * Test Item Value Reference Range Interpretation Comments Eosinophils (%) (Auto) (test code = 713-8) 2.1 0.0-6.0 [facility] HospitalBasophils (%) (Auto)2017-12-23 05:16:00* Test Item Value Reference Range Interpretation Comments Basophils (%) (Auto) (test code = 706-2) 0.5 0.0-1.0 [facility] HospitalIM GRANULOCYTES %2017-12-23 05:16:00* Test Item Value Reference Range Interpretation Comments IM GRANULOCYTES % (test code = IM GRANULOCYTES %) 0.3 0.0- 1.0 [facility] HospitalNeutrophils # (Auto)2017-12-23 05:16:00* Test Item Value Reference Range Interpretation Comments Neutrophils # (Auto) (test code = 751-8) 6.6 2.1-6.9 [facility] HospitalLymphocytes # (Auto)2017-12-23 05:16:00* Test Item Value Reference Range Interpretation Comments Lymphocytes # (Auto) (test code = 50037-8) 3.5 1.0-3.2 H [facility] HospitalMonocytes # (Auto)2017-12-23 05:16:00* Test Item Value Reference Range Interpretation Comments Monocytes # (Auto) (test code = 742-7) 0.5 0.2-0.8 [facility] HospitalEosinophils # (Auto)2017-12-23 05:16:00* Test Item Value Reference Range Interpretation Comments Eosinophils # (Auto) (test code = 711-2) 0.2 0.0-0.4 [facility] HospitalBasophils # (Auto)2017-12-23 05:16:00* Test Item Value Reference Range Interpretation Comments Basophils # (Auto) (test code = 704-7) 0.1 0.0-0.1 [facility] Granul[facility] (auto 2017-12-23 05:16:00* Test Item Value Reference Range Interpretation Comments Absolute Immature Granulocyte (auto (melinda t code = Absolute Immature Granulocyte (auto) 0.03 0-0.1 [facility] HospitalBlood Wcuescd2371-24-87 21:14:00* Test Item Value Reference Range Interpretation Comments Blood Culture (test code = 53888805) NO GROWTH AFTER 72 HOURS [facility] Vhhtxwj8385-56-79 16:52:00* Test Item Value Reference Range Interpretation Comments Bedside Glucose (test code = 93488-1) 92 70-120 Meter ID: [id number] Glucose 2017-12-21 16:52:00* Test Item Value Reference Range Interpretation Comments Bedside Glucose (test code = 03911-3) 92 70-120 Meter ID: [id number] HospitalTriglycerides Level 2017-12-20 11:04:00* Test Item Value Reference Range Interpretation Comments Triglycerides Level (test code = 2571-8) 166 0-149 H [facility] HospitalCholesterol Bcfbe9460-14-36 11:04:00* Test Item Value Reference Range Interpretation Comments Cholesterol Level (test code = 2093-3) 146 0-199 Less than 200 mg/dL Low Xlen226 - 239 mg/dL Borderline Nsnj837 m g/dl and greater High Risk [facility] HospitalLDL Exnestvvlsw0785-14-04 11:04:00* Test Item Value Reference Range Interpretation Comments LDL Cholesterol (test code = 2089-1) 55 60-130 L [facility]HDL Pwecfqimnzd8591-99-26 11:04:00* Test Item Value Reference Range Interpretation Comments HDL Cholesterol (test code = 2085-9) 58 40-60 [facility]Cholesterol/HDL Vomuq4025-26-09 11:04:00 * Test Item Value Reference Range Interpretation Comments Cholesterol/HDL Ratio (test code = 9830-1) 2.5 3.0-3.6 L [facility] HospitalCreatine Kinase DA2734-76-61 10:29:00* Test Item Value Reference Range Interpretation Comments Creatine Kinase MB (test code = 02543-8) 22.70 0-5.0 H [facility] HospitalCreatine Pkirud9726-69-87 10:26:00* Test Item Value Reference Range Interpretation Comments Creatine Kinase (test code = 2157-6) 285 29-168 H [facility] HospitalTotal Isjyrlncr3634-01-09 05:49:00* Test Item Value Reference Range Interpretation Comments Total Bilirubin (test code = 1975-2) 1.2 0.2-1.2 [facility] HospitalAspartate Amino Transf (AST/SGOT) 2017-12-20 05:49:00* Test Item Value Reference Range Interpretation Comments Aspartate Amino Transf (AST/SGOT) (test code = Aspartate Amino Transf (AST/SGOT)) 37 5-34 H [facility] HospitalAlanine Aminotransferase (ALT/SGPT) 2017-12-20 05:49:00* Test Item Value Reference Range Interpretation Comments Alanine Aminotransferase (ALT/SGPT) (test code = 1742-6) 33 0-55 [facility] HospitalTotal Xxahxdk4832-12-40 05:49:00* Test Item Value Reference Range Interpretation Comments Total Protein (test code = 2885-2) 6.2 6.5-8.1 L [facility] HospitalAlbumin2018-10-12 05:49:00* Test Item Value Reference Range Interpretation Comments Albumin (test code = 1751-7) 3.0 3.5-5.0 L [facility] HospitalGlobulin2018-10-12 05:49:00* Test Item Value Reference Range Interpretation Comments Globulin (test code = 50698-7) 3.2 2.3-3.5 [facility] HospitalAlbumin/Globulin Qsskc2882-35-20 05:49:00 * Test Item Value Reference Range Interpretation Comments Albumin/Globulin Ratio (test code = 1759-0) 0.9 0.8-2.0 [facility] HospitalAlkaline Qxpphprunjg8680-63-30 05:49:00* Test Item Value Reference Range Interpretation Comments Alkaline Phosphatase (test code = 6768-6) 44 40-150 [facility] HospitalLactic Acid Yqqph8644-66-92 21:29:00* Test Item Value Reference Range Interpretation Comments Lactic Acid Level (test code = Lactic Acid Level) 13.3 4.5- 19.8 [facility] HospitalLactic Acid Ccxjp0979-07-85 21:29:00* Test Item Value Reference Range Interpretation Comments Lactic Acid Level (test code = Lactic Acid Level) 13.3 4.5- 19.8 [facility] HospitalCT CHEST C9249-04-61 20:33:00 [facility] [address] [place] [address] Patient Name: JO MENESES MR #: [id number] : 1985 Age/Sex: 32/F Req #: [id number] Adm Physician: Ordered by: EDE LAWSON SPAR FINISHER Report #: [id number] Location: ER Room/Bed: Procedure: [id number] CT/CT CHEST W Exam D ate: Exam Time: REPORT STATUS: Signed EXAM INATION: CT scan of the chest with contrast. TECHNIQUE: Helical CT images of the chest were performed from the lung apices to the level of the adrenal g lands after the intravenous administration of 100 cc of Isovue 300. Coronal a nd sagittal reformatted images were obtained.Dose modulation, iterative recons truction, and/or weight based adjustment of the mA/kV was utilized to reduce t he radiation dose to as low as reasonably achievable. COMPARISON: None. CLINICAL HISTORY:chest pain DISCUSSION: LINES/TUBES: None. LUNGS AND AIRWAYS: No pulmonary embolism. Multifocal groundglass op[place] cities patchy in the upper lobes and confluence in the lower lobes. Interlobul ar septal thickening. PLEURA: Small pleural effusions. HEART AND MEDIA STINUM: The thyroid gland is normal. The heart and pericardium are within no rmal limits. LYMPH NODES: There is no mediastinal, hilar or axillary lympha denopathy. ABDOMEN: Limited contrast-enhanced views of the upper abdomen sh ow no abnormality within the visualized liver, spleen, pancreas, or kidneys. T he adrenal glands are normal. BONES AND SOFT TISSUES: No acute bony abnor malities. IMPRESSION: No pulmonary embolism. Multifocal lower lo be predominant groundglass consolidations and interlobular septal thickening l ikely secondary to pulmonary edema. (Other less likely etiology include alveol ar proteinosis, hemorrhage, or acute eosinophilic pneumonia). Small pleur al effusions. Signed by: Dr. Conner Marx M.D. on 12/19/2017 8:51 PM Dictated By: CONNER MARX MD 50 Transcribed By: LIANA on 12/19/172050 COPY TO: EDE LAWSON NP B-Type Natriuretic Bhzaads9800-77-40 20:09:00* Test Item Value Reference Range Interpretation Comments B-Type Natriuretic Peptide (test code = 71160-0) 118.2 0-100 H [facility] HospitalMagnesium Tvioy1887-41-46 19:47:00* Test Item Value Reference Range Interpretation Comments Magnesium Level (test code = 91802-2) 1.8 1.3-2.1 [facility] HospitalCHEST SINGLE (PORTABLE)2017-12-19 19:32:00 [place] [address] Patient Name: JO MENESES MR #: [id number] : 1985 Age/Sex: 32/F Req #: [id number] Adm Physician: Ordered by: EDE LAWSON NP Report #: [id number] Location: ER Room/Bed: Procedure: [id number] DX/CHEST SINGLE (PORT ABLE) Exam Date: 12/19/17 Exam Time: 1905 REPO RT STATUS: Signed Examination: Single AP view of the chest. COMPARISON: None. INDICATION: Bronchitis DISCUSSION: Lines/tubes: None. Lungs: Pulmonary venous congestion. No consolidative pneumonia. Pleu ra: There is no pleural effusion or pneumothorax. Heart and mediastinum: The heart and the mediastinum are unremarkable. Bones and soft tissues: No acute bony abnormalities. IMPRESSION: No consolidative pneumoni a Pulmonary venous congestion Signed by: Cate Llamas 12/19/2017 7:33 PM Dictated By: CONNER MARX MD Electronically Sig jamel By: CONNER MARX MD on 12/19/171932 Transcribed By: LIANA on 1932 COPY TO: EDE LAWSON NP Urine Test 2017-12-19 19:06:00* Test Item Value Reference Range Interpretation Comments Urine Test (test code = 2106-3) NEGATIVE NEGATIVE [facility] HospitalUrine Sxqt6513-09-22 19:06:00* Test Item Value Reference Range Interpretation Comments Urine Test (test code = 2106-3) NEGATIVE NEGATIVE [facility]
== END 2020-02-03 19:57 | disposition short-term general hospital (02) ==
LOC: ER 19:56
DX: J18.9 Pneumonia, unspecified organism (principal)

== ENCOUNTER → 2021-07-26 | Outpatient (CLI) | payer OTHER | LOC: RAD 11:07 | PROVIDERS: ATTEND Internal Medicine | DX: R07.9 Chest pain, unspecified (principal) | CPT/HCPCS: 71046 ==